=== PATIENT | male | born 1950 | race Caucasian/White ===

== ENCOUNTER 2022-06-19 13:58 | Inpatient (IN) | payer MEDICARE, BC ==
[~2022-06-19] VITALS: Ht 182.9 cm; Wt 74.4 kg
[2022-06-19] VITALS (7 sets, daily range): BP systolic 100–148; BP diastolic 48–119
--- NOTE | 2022-06-19 14:10 | NUR ---
SAIDAA RA88 "From Home Hx Covid 1mo ago now Fever/cough/congestion more altered/slow to response today. BS-172". PLACED ON BED, AWAKE ALERT RESPONDING TO VERBAL STIMULI, CONFUSED, ATTACHED TO MONITOR SATURATING AT 65%RA, RR-24, APLIED O2 8LIT VIA SIMPLE MASK SATURATING AT 91%.
--- NOTE | 2022-06-19 14:15 | NUR ---
INFORMED DR SORENSON ABOUT THE PATIENT SATURATION AND ORDERS HIGH FLOW O2 AND CONTACTED SUPERVISOR MOTOR VEHICLE ASSEMBLY. RESPONDED AND THEY WILL COME
--- NOTE | 2022-06-19 14:20 | NUR ---
CONTRACTOR BUYER. AT BED SIDE ATTACHED PATIENT TO VAPOTHREM HI FLOW WITH SETTING 40LIT. 100%O2 SATURATING AT 97%.
--- NOTE | 2022-06-19 14:25 | NUR ---
RT NOTE POST ABG RESULTS SHOWN TO DR. SORENSON. PLACED PT ON HFNC 40L, 100% PER MD ORDER. SpO2 96%, HR 94. NO SOB NOTED AT THIS TIME. CHARGE NURSE AWARE AND NOTIFIED. WILL CONTINUE TO MONITOR FOR ANY CHANGES.
[2022-06-19 14:40] LABS: ABG BASE EXCESS -2.2 mmol/L; ABG PCO2 27.9 mmHg (35.0-45.0); ABG PO2 60.1 mmHg (75.0-100.0); COHb 0.7 % (0.5-1.5); MetHb 0.2 % (0.0-1.5); O2Hb 89.5 % (94.0-97.0); SITE, ABG Right Radial; VENT MODE, BG 15LPM NRB
--- NOTE | 2022-06-19 15:09 | NUR ---
MOVE SHEET SUBMITTED.
--- NOTE | 2022-06-19 15:15 | NUR ---
BLOOD DRAWN AND TO LAB
[2022-06-19] MEDS ORDERED: CHOL500062 PO (15:20)
[2022-06-19] MEDS ORDERED: DULO20CA PO (15:20)
[2022-06-19] MEDS ORDERED: ROSU40TA PO (15:20)
[2022-06-19] MEDS ORDERED: MULT-1196 PO (15:20)
[2022-06-19] MEDS ORDERED: EZET10TA16 PO (15:20)
[2022-06-19] MEDS ORDERED: OMEP40CA21 PO (15:20)
[2022-06-19] MEDS ORDERED: PREG75CA PO (15:20)
[2022-06-19] MEDS ORDERED: ASPI-1169 PO (15:20)
[2022-06-19] MEDS ORDERED: ZOLP5TAB2 PO (15:20)
[2022-06-19] MEDS ORDERED: BACL10TA PO ×2 (15:20)
[2022-06-19] MEDS ORDERED: DILT240C53 PO (15:20)
[2022-06-19 15:24] LABS: CARBON DIOXIDE 25 mmol/L (21-32); CHLORIDE 106 mmol/L (98-107); CREATININE 1.5 mg/dL (0.6-1.3); GLUCOSE 127 mg/dL (74-106); POTASSIUM 3.7 mmol/L (3.5-5.1); SODIUM SERUM 141 mmol/L (136-145); UREA NITROGEN, BLOOD 46 mg/dL (7-18)
--- NOTE | 2022-06-19 15:30 | NUR ---
PATIENT TAKEN TO CT VIA MARCK
[2022-06-19 15:36] LABS: ALANINE AMINOTRANSFERASE 30 U/L (12-78); ALKALINE PHOSPHATASE 970 U/L (46-116); ASPARTATE AMINOTRANSFERASE 50 U/L (15-37); BILIRUBIN,DIRECT 0.1 mg/dL (0.0-0.2); BILIRUBIN,TOTAL 0.3 mg/dL (0.2-1.0)
[2022-06-19 15:45] LABS: ALBUMIN 1.4 g/dL (3.4-5.0)
--- NOTE | 2022-06-19 15:45 | NUR ---
albumin 1.4, Dr Barry aware
[2022-06-19] MEDS ORDERED: AZITHROMYCIN 500 MG in IV D5W 250 ML IV ONE (16:00)
[2022-06-19] MEDS ORDERED: DEXAMETHASONE SOD PHOSPHATE 10 MG/ML VIAL IV ONE (16:00)
[2022-06-19] MEDS ORDERED: CEFTRIAXONE 1GM BAG (ER ONLY) 50 ML IV ONE (16:00)
[2022-06-19] MEDS ORDERED: IV NS 0.9% 1,000 ML BAG IV ONE ×2 (16:00→17:30)
[2022-06-19] MEDS ORDERED: DEXAMETHASONE SOD PHOSPHATE 10 MG/ML VIAL ONE (16:10)
--- NOTE | 2022-06-19 16:10 | NUR ---
RIGHT CHEST TUBE INSERTION DONE BY DR SORENSON WITH PROPOFOL 100MG DRAINING TO A CLEAR YELLOW COLOR OUTPUT AND SAMPLE SENT TO LAB.
[2022-06-19] MEDS ORDERED: PROPOFOL 20 ML IV ONE (16:52)
[2022-06-19] MEDS ORDERED: PROPOFOL 200 MG/20 ML VIAL IV ONE (17:00)
--- NOTE | 2022-06-19 17:10 | NUR ---
DR BAER SPEAKING WITH DR SORENSON
--- NOTE | 2022-06-19 17:15 | NUR ---
CALLED [facility] PAGED DR HAGER
--- NOTE | 2022-06-19 17:30 | NUR ---
CHARLTON CATH INSERTED FR16 DRAINING TO A YELLOW COLOR URINE OUTPUT AND SAMPLE SENT TO LAB
--- NOTE | 2022-06-19 17:52 | NUR ---
URINE COLLECTED AND SENT TO LAB
[2022-06-19] MEDS ORDERED: ONDANSETRON HCL/PF 4 MG/2 ML VIAL IVP PRN (18:00)
[2022-06-19] MEDS ORDERED: MAGNESIUM HYDROXIDE 30 ML UDC PO PRN (18:00)
[2022-06-19] MEDS ORDERED: Z GUARD REMEDY 4 OZ OINT TP PRN (18:00)
[2022-06-19] MEDS ORDERED: MAG HYDROX/AL HYDROX/SIMETH 30 ML UDC PO PRN (18:00)
[2022-06-19 18:19] LABS: BILIRUBIN,URINE NEGATIVE (NEGATIVE); COLOR,URINE YELLOW (YELLOW); LEUKOCYTE ESTERASE ,URINE SMALL (NEGATIVE); NITRITE, URINE NEGATIVE (NEGATIVE); PROTEIN,URINE 100 mg/dl (NEGATIVE); UGLUCOSE NEGATIVE (NEGATIVE)
--- NOTE | 2022-06-19 18:39 | NUR ---
GOT BED 254 ICU.
[2022-06-19 18:43] LABS: BACTERIA,URINE 3+ /HPF (None Seen); COARSE GRANULAR CASTS,URINE Few /LPF (None Seen); HYALINE CASTS, URINE Few /LPF (None Seen); RBC,URINE 21-50 /HPF (0-2); SQUAMOUS EPITHELIAL CELL,UR 0-2 /HPF (None Seen)
--- NOTE | 2022-06-19 19:25 | NUR ---
REPORT GIVEN TO TIANA [facility] ICU-254 FOR ESME
--- NOTE | 2022-06-19 19:30 | NUR ---
RN NOTES REPORT RECEIVED FROM ER NURSE
--- NOTE | 2022-06-19 19:50 | NUR ---
PUMP SERVICER HELPER NOTES ADMITTED A 71 Y/O MALE PATIENT FROM ER VIA GURNEY, PATIENT AWAKE, A/O X 1, WITH CONFUSION BUT ORIENTED TO NAME. ON HIGH FLOW @ 40L, FIO2-100%, AFEBRILE. WITH DX OF PLEURAL EFFUSION. NOTED WITH LEFT HAND#22, AND RIGHT HAND # 20 PERIPHERAL LINE, FLUSHED WITH NS, PATENT INTACT, NO S/S OF INFILTRATION NOTED. PATIENT WITH RIGHT SIDE CHEST TUBE CONNECTED TO CONTAINER WITH 2000ML OUTPUT. CHARLTON CATHETER PATENT INTACT DRAINING CLEAR YELLOW URINE VIA GRAVITY. ALL SAFETY MEASURE PROVIDED, BED IN LOWEST POSITION, LOCKED. CONTINUE TO MONITOR.
[2022-06-19 20:02] LABS: BASOPHILS # (AUTO) 0.1 K/uL (0.0-0.2); BASOPHILS % (AUTO) 0.5 % (0.0-2.0); EOSINOPHILS % (AUTO) 1.1 % (0.0-6.0); HEMATOCRIT 33 % (39-51); HEMOGLOBIN 10.5 g/dL (13.5-17.5); LYMPHOCYTES # (AUTO) 0.8 K/uL (0.8-4.8); LYMPHOCYTES % (AUTO) 4.3 % (20.0-44.0); MEAN CORPUSCULAR HGB CONC 32 g/dl (31.0-36.0); MEAN CORPUSCULAR VOLUME 87 fL (80-96); MONOCYTES # (AUTO) 0.4 K/uL (0.1-1.30); MONOCYTES % (AUTO) 1.9 % (2.0-12.0); NEUTROPHILS # (AUTO) 17.4 K/uL (1.8-8.9); NEUTROPHILS % (AUTO) 92.2 % (43.0-81.0); PLATELET COUNT (AUTO) 252 K/uL (150-450); RED BLOOD CELL COUNT(AUTO) 3.85 MIL/uL (4.5-6.0); WHITE BLOOD COUNT (AUTO) 18.8 K/uL (4.3-11.0)
--- NOTE | 2022-06-19 20:11 | NUR ---
ICU/RN: RECEIVED PT FROM ER. CHEST TUBE COLLECTION SYSTEM WAS FULL. NEW ATRIUM COLLECTION SYSTEM ATTACHED.
[2022-06-19] MEDS: IV NS 0.9% 1,000 ML IV PRN (20:33)
[2022-06-19 20:45] LABS: BAND % (MANUAL) 7 % (0.0-5.0); LYMPHOCYTES % (MANUAL) 4 % (16-48); MONOCYTES % (MANUAL) 3 % (0-11.0); NEUTROPHILS % (MANUAL) 86 (42-76)
[2022-06-19] MEDS: ENOXAPARIN SODIUM 40 MG/0.4 ML DISP.SYRIN SQ SCH (20:47)
[2022-06-19] MEDS: EZETIMIBE 10 MG TABLET PO SCH (21:54)
[2022-06-19] MEDS: BACLOFEN (10 MG) 10 MG TABLET PO SCH (21:54)
[2022-06-19] MEDS: PREGABALIN 25 MG CAPSULE PO SCH (21:54)
[2022-06-19] MEDS: ATORVASTATIN 40 MG TABLET PO SCH (21:55)
[2022-06-19] MEDS: DULOXETINE HCL 20 MG CAPSULE.DR PO SCH (21:55)
[2022-06-19] MEDS ORDERED: ZOLPIDEM TARTRATE 5 MG TABLET PO PRN (22:00)
[2022-06-19] MEDS: ZOSYN IVPB 3.375 G in IV D5W 50ml IV SCH (23:41)
[2022-06-20] VITALS (51 sets, daily range): BP systolic 75–160; BP diastolic 23–114
[2022-06-20 04:37] LABS: BASOPHILS # (AUTO) 0.1 K/uL (0.0-0.2); BASOPHILS % (AUTO) 0.5 % (0.0-2.0); EOSINOPHILS % (AUTO) 0.1 % (0.0-6.0); HEMATOCRIT 33 % (39-51); HEMOGLOBIN 10.6 g/dL (13.5-17.5); LYMPHOCYTES # (AUTO) 0.7 K/uL (0.8-4.8); LYMPHOCYTES % (AUTO) 3.5 % (20.0-44.0); MEAN CORPUSCULAR HGB CONC 32 g/dl (31.0-36.0); MEAN CORPUSCULAR VOLUME 87 fL (80-96); MONOCYTES # (AUTO) 0.4 K/uL (0.1-1.30); MONOCYTES % (AUTO) 2.2 % (2.0-12.0); NEUTROPHILS # (AUTO) 17.8 K/uL (1.8-8.9); NEUTROPHILS % (AUTO) 93.7 % (43.0-81.0); PLATELET COUNT (AUTO) 251 K/uL (150-450); RED BLOOD CELL COUNT(AUTO) 3.83 MIL/uL (4.5-6.0)
[2022-06-20 04:55] LABS: CALCIUM, SERUM 7.4 mg/dL (8.5-10.1); CARBON DIOXIDE 24 mmol/L (21-32); CHLORIDE 108 mmol/L (98-107); CREATININE 1.5 mg/dL (0.6-1.3); GLUCOSE 144 mg/dL (74-106); MAGNESIUM 2.1 mg/dL (1.8-2.4); PHOSPHORUS 3.1 mg/dL (2.5-4.9); POTASSIUM 3.6 mmol/L (3.5-5.1); SODIUM SERUM 142 mmol/L (136-145); UREA NITROGEN, BLOOD 43 mg/dL (7-18)
[2022-06-20] MEDS: ZOSYN IVPB 3.375 G in IV D5W 50ml IV SCH ×4 (05:37→23:17)
--- NOTE | 2022-06-20 07:10 | NUR ---
RN OPEN NOTE PATIENT AWAKE, CONFUSED BUT MOT AGRESSIVE , ON HIGH FLOW @ 40L, FIO2-100%, AFEBRILE. WITH DX OF PLEURAL EFFUSION. PATIENT HAS IV ACCES ON LEFT HAND#22, AND RIGHT HAND # 20 PERIPHERAL LINE, FLUSHED WITH NS, PATENT INTACT, NO S/S OF INFILTRATION NOTED. IVF OF NS RUNNING WITH 100 ML/HR PATIENT HAS RIGHT SIDE CHEST TUBE CONNECTED TO CONTAINER WITH 95 ML OUTPUT. CHARLTON CATHETER PATENT INTACT DRAINING CLEAR YELLOW URINE VIA GRAVITY. ALL SAFETY MEASURE PROVIDED, BED IN LOWEST POSITION, LOCKED. CONTINUE TO MONITOR.
[2022-06-20] MEDS: PANTOPRAZOLE 40 MG TABLET.DR PO SCH (08:13)
[2022-06-20] MEDS: BACLOFEN (10 MG) 10 MG TABLET PO SCH ×2 (08:14→21:03)
[2022-06-20] MEDS: DILTIAZEM HCL CD 240 MG PO SCH (08:14)
--- NOTE | 2022-06-20 08:17 | NUR ---
WOUND CARE CONSULT: PT PRESENTS WITH SACRAL DEEP TISSUE INJURY IN EVOLUTION, PRESENT ON ADMISSION. PT NOTED TO HAVE CHEST TUBE AND CHARLTON CATH. RECOMMENDATIONS MADE FOR SKIN PROTECTION AND WOUND CARE. DISCUSSED WITH NURSING STAFF. FIRST STEP LOW AIRLOSS MATTRESS IS ON ORDER. MD IN AGREEMENT WITH PLAN OF CARE. Addendum: 06/20/22 at 0818 by NEENA HASSAN WNDNU Amended: Links added.
[2022-06-20] MEDS: ACETYLCYSTEINE 10% SOLN 400 MG/4 ML VIAL NEB SCH ×3 (09:00→23:25)
[2022-06-20] MEDS: DEXAMETHASONE SOD PHOSPHATE 10 MG/ML VIAL IV SCH (09:35)
[2022-06-20] MEDS: IV NS 0.9% 1,000 ML IV PRN (09:58)
[2022-06-20] MEDS: LEVOFLOXACIN 750 MG /D5W 150ML 150 ML IV SCH (10:19)
[2022-06-20] MEDS: ACETAMINOPHEN 325 MG TABLET PO PRN (11:43)
--- NOTE | 2022-06-20 11:45 | NUR ---
SS consult requested for sacral wound from home. Pt. is a 71-year-old male who was admitted to [facility] on 06/19/2022 due to respiratory distress. Upon SS consult, pt. is alert and oriented x1 (self). Pt. appears confused and disoriented. Pt. responded to his name and his daughter Meme ([phone]) name. Pt. did not provide appropriate eye contact. Pt. was unable to answer questions at this time. environmental restoration planner called pt.s daughter Meme ([phone]). Meme ([phone]) stated that the pt. has two caregivers Mina ([phone]) and Javon ([phone]). Meme ([phone]) stated that the pt. had COVID-19 three weeks ago. Meme ([phone]) stated that the pt. had sacral wounds from not being turned from COVID-19. Meme ([phone]) stated she was worried about the care the pt. was receiving at home. Meme ([phone]) stated that she was interested in possible SNF placement for the pt. environmental restoration planner notified CM of family wanting possible SNF placement. CM stated they would follow-up. environmental restoration planner explored pt.s psychiatric history. Meme ([phone]) stated that the pt. is depressed and takes anti-depressant medication. Meme ([phone]) stated that the pt. has a psychiatrist and therapist. Meme ([phone]) stated that the pt. does not have substance use history. Plan: Upon discharge, pt. will return home with caregiver to [address] [place] [id number] or to possible SNF placement.
[2022-06-20] MEDS: ENSURE ENLIVE 237 ML LIQUID (VANILLA) PO SCH ×2 (13:00→17:00)
--- NOTE | 2022-06-20 18:57 | NUR ---
RN CLOSING NOTE PATIENT IS ALERT , CONFUSED , ORIENTED BY NAME , RECEIVING O2 VIA N/C 6L , TOLERATING WELL , O2 SAT 96%, PATIENT HAS IV ACCES ON LEFT HAND#22, AND RIGHT HAND # 20 PERIPHERAL LINE, FLUSHED WITH NS, PATENT INTACT, NO S/S OF INFILTRATION NOTED. IVF OF NS RUNNING WITH 75 ML/HR .PATIENT HAS RIGHT SIDE CHEST TUBE CONNECTED TO CONTAINER WITH 10 ML OUTPUT. CHARLTON CATHETER PATENT INTACT DRAINING CLEAR YELLOW URINE VIA GRAVITY 450 ML OUTPUT. ALL SAFETY MEASURE PROVIDED, ALL MEDICATIONS WERE ADMINISTERED ,BED IN LOWEST POSITION, LOCKED. WILL ENDIRSE AGRICULTURAL TECHNICAL OFFICER TO CONTINUE WITH PLAN OF CARE.
--- NOTE | 2022-06-20 19:20 | NUR ---
USER EXPERIENCE ARCHITECT NOTES RECEIVED PT FOR CONTINUITY OF CARE. PATIENT A/OX1-2 IN NO S/SX OF ACUTE DISTRESS AT THIS TIME; CURRENTLY ON 6L OF O2 VIA NC, WITH 02 SAT 94% AT THIS TIME. WITH R SIDE CHEST TUBE CONNECTED WITH CONTAINER; SECURED AND INTACT NO SIGNS OF LEAKAGE. IV SITE ON L HAND #22 AND R HAND #20; BOTH PATENT, INTACT AND FLUSHING WELL; NO S/S OF INFECTION OR INFILTRATION. RECEIVED RUNNING NS@75MLS/HR. PT ON REGULAR DIET. CHARLTON CATH IN PLACE, SMALL URINE OUTPUT NOTED AT THIS TIME. WITH BILATERAL SOFT RESTRAINTS IN PLACED, MONITORED AND ASSESSED PER PROTOCOL. WILL ENSURE SAFETY MEASURES WITHIN THE SHIFT. PATIENT BED ALARM IS ON. HEAD OF BED ELEVATED. BED IS LOCKED, IN LOWEST POSITION AND SIDE RAILS UP. CALL LIGHT WITHIN REACH OF THE PATIENT. WILL CONTINUE TO MONITOR AND REASSESS FOR ANY CHANGES AND WILL CARRY OUT ANY ONGOING AND ACTIVE MD ORDER.
[2022-06-20] MEDS: ENOXAPARIN SODIUM 40 MG/0.4 ML DISP.SYRIN SQ SCH (20:26)
[2022-06-20] MEDS: EZETIMIBE 10 MG TABLET PO SCH (21:02)
[2022-06-20] MEDS: DULOXETINE HCL 20 MG CAPSULE.DR PO SCH (21:03)
[2022-06-20] MEDS: ATORVASTATIN 40 MG TABLET PO SCH (21:03)
[2022-06-20] MEDS: PREGABALIN 25 MG CAPSULE PO SCH (21:03)
[2022-06-21] VITALS (45 sets, daily range): BP systolic 91–154; BP diastolic 48–100
[2022-06-21] MEDS: IV NS 0.9% 1,000 ML IV PRN ×2 (00:39→14:08)
--- NOTE | 2022-06-21 04:00 | NUR ---
RN NOTES NO NOTED CHANGES IN PATIENT CONDITION AT THIS TIME; PATIENT VITALS STABLE, NO SIGNS OF ACUTE RESPIRATORY DISTRESS. AM PATIENT CARE RENDERED.WILL CONTINUE TO MONITOR AND REASSESS FOR ANY CHANGES THROUGHOUT THE SHIFT.
[2022-06-21 05:01] LABS: BASOPHILS # (AUTO) 0.1 K/uL (0.0-0.2); BASOPHILS % (AUTO) 0.4 % (0.0-2.0); EOSINOPHILS % (AUTO) 0.1 % (0.0-6.0); HEMATOCRIT 33 % (39-51); HEMOGLOBIN 10.4 g/dL (13.5-17.5); LYMPHOCYTES # (AUTO) 0.9 K/uL (0.8-4.8); LYMPHOCYTES % (AUTO) 4.2 % (20.0-44.0); MEAN CORPUSCULAR HGB CONC 32 g/dl (31.0-36.0); MEAN CORPUSCULAR VOLUME 87 fL (80-96); MONOCYTES # (AUTO) 0.9 K/uL (0.1-1.30); MONOCYTES % (AUTO) 4.3 % (2.0-12.0); NEUTROPHILS # (AUTO) 18.6 K/uL (1.8-8.9); PLATELET COUNT (AUTO) 248 K/uL (150-450); RED BLOOD CELL COUNT(AUTO) 3.76 MIL/uL (4.5-6.0); WHITE BLOOD COUNT (AUTO) 20.5 K/uL (4.3-11.0)
[2022-06-21] MEDS: ZOSYN IVPB 3.375 G in IV D5W 50ml IV SCH ×4 (05:13→23:34)
[2022-06-21 05:25] LABS: CALCIUM, SERUM 7.4 mg/dL (8.5-10.1); CARBON DIOXIDE 23 mmol/L (21-32); CHLORIDE 109 mmol/L (98-107); CREATININE 1.5 mg/dL (0.6-1.3); GLUCOSE 113 mg/dL (74-106); POTASSIUM 3.2 mmol/L (3.5-5.1); SODIUM SERUM 142 mmol/L (136-145); UREA NITROGEN, BLOOD 41 mg/dL (7-18)
--- NOTE | 2022-06-21 06:36 | NUR ---
DOPE SPRAYER CLOSING NOTE: PATIENT REMAINS IN ROOM IN NO SIGNS OF RESPIRATORY DISTRESS, PATIENT NOW ON 5L OF O2 VIA NC;TOLERATING WELL SATURATING @ >92% SP02. CHEST TUBE ON R SIDE REMAINED INTACT AND SECURED NO SIGNS OF LEAKAGE STILL CONNECTED TO CONTAINER 56CC OUTPUT FOR THE SHIFT SAFETY MEASURES IMPLEMENTED, BED IN LOWEST POSITION, LOCKED, SIDE RAILS UP, CALL LIGHT WITHIN REACH. ALL NEEDS AND ORDERS ADDRESSED DURING THE SHIFT. IV ACCESS MAINTAINED INTACT, SECURED AND FLUSHING WELL. IV FLUID STILL RUNNING ORDERED. ALL DUE MEDS GIVEN ORDERED & SCHEDULED ; PATIENT TOLERATED WELL. PATIENT KEPT CLEAN AND COMFORTABLE WITHIN THE SHIFT. PATIENT ENDORSED TO INCOMING SHIFT RN WITH STABLE VITAL SIGN AND FOR CONTINUITY OF CARE.
--- NOTE | 2022-06-21 06:45 | NUR ---
TAX INTERN NOTES PT HR WENT UP FROM LOW 100s to 140-150s, AFIB ON MONITOR; DR. CASTELLANOS DOING HIS MORNING ROUNDS AWARE AND SAW PT, MENTIONED HE IS GOING TO PUT ORDERS. RAW HIDE TRIMMER WELL AWARE.
[2022-06-21] MEDS: ACETYLCYSTEINE 10% SOLN 400 MG/4 ML VIAL NEB SCH ×3 (07:19→23:42)
[2022-06-21] MEDS ORDERED: AMIODARONE 150 MG in IV D5W 100 ML IV ONE (07:30)
[2022-06-21] MEDS ORDERED: AMIODARONE 450 MG in IV D5W 250 ML IV PRN (07:30)
[2022-06-21] MEDS ORDERED: POTASSIUM CHLORIDE 20 MEQ TAB.PRT.SR PO ONE (08:00)
--- NOTE | 2022-06-21 08:05 | NUR ---
dr. maria seen pt., no new orders.
[2022-06-21] MEDS: PANTOPRAZOLE 40 MG TABLET.DR PO SCH (08:10)
[2022-06-21] MEDS: AMIODARONE 450 MG in IV D5W 241 ML IV PRN ×2 (08:21→17:26)
--- NOTE | 2022-06-21 08:21 | NUR ---
PT. PLACED INTO HIGH FLOW NASAL CANNULA @ 30 l FLOW / 60% FIO2 DUE TO 80% SPO2 ON 6 LPM NASAL CANNULA. RN NOTIFIED. Addendum: 06/21/22 at 0823 by BIMAL WALTON RT Amended: Links added.
[2022-06-21] MEDS: DILTIAZEM HCL CD 240 MG PO SCH (09:14)
[2022-06-21] MEDS: BACLOFEN (10 MG) 10 MG TABLET PO SCH ×2 (09:15→21:18)
[2022-06-21] MEDS: ENSURE ENLIVE 237 ML LIQUID (VANILLA) PO SCH ×3 (09:15→17:37)
[2022-06-21] MEDS: DEXAMETHASONE SOD PHOSPHATE 10 MG/ML VIAL IV SCH (09:15)
[2022-06-21] MEDS: ACETAMINOPHEN 325 MG TABLET PO PRN (09:53)
--- NOTE | 2022-06-21 11:35 | NUR ---
MADE AWARE OF SCANT-SMALL CHEST TUBE DRAINAGE, NO ORDER MADE.
[2022-06-21] MEDS: IPRATROPIUM NEB FS 0.5 MG/2.5 ML AMPUL.NEB NEB SCH ×2 (12:44→19:40)
--- NOTE | 2022-06-21 19:30 | NUR ---
RN Note Received patient in bed, awake and verbally responsive. poor concentration. Breathing even and unlabored. noted with productive cough. Patient on High flow 30L/60% FIO2. tolerating well with O2 saturation of 97 percent via bedside monitor. Skin is arm and dry to touch. noted with right hand 20g and left hand 22g PIV. currently infusing ns at 75 ml/hr and amiodarone drip at 0.5 mcg. no complaints at this time. indwelling garcia catheter intact, draining by gravity. right sided chest tube. noted with dark red drainage. dressing intact. Soft wrist restraints. Bilateral radial pulses wnl. Bed low, in locked position, call light within reach.
[2022-06-21] MEDS: DULOXETINE HCL 20 MG CAPSULE.DR PO SCH (21:18)
[2022-06-21] MEDS: EZETIMIBE 10 MG TABLET PO SCH (21:18)
[2022-06-21] MEDS: ATORVASTATIN 40 MG TABLET PO SCH (21:18)
[2022-06-21] MEDS: PREGABALIN 25 MG CAPSULE PO SCH (21:19)
[2022-06-21] MEDS: ENOXAPARIN SODIUM 40 MG/0.4 ML DISP.SYRIN SQ SCH (21:30)
--- NOTE | 2022-06-21 23:45 | NUR ---
RT Notes High Flow Nasal cannula settings changed due to SpO2 86%. Flow increased from 30L to 40L and FIO2 increased from 60% to 85%. RN notified.
[2022-06-22] VITALS (37 sets, daily range): BP systolic 107–155; BP diastolic 60–96
[2022-06-22] MEDS: IPRATROPIUM NEB FS 0.5 MG/2.5 ML AMPUL.NEB NEB SCH ×4 (01:42→20:07)
[2022-06-22] MEDS: IV NS 0.9% 1,000 ML IV PRN (02:54)
--- NOTE | 2022-06-22 04:13 | NUR ---
RT Notes FIO2 titrated from 85% to 65% due to SpO2 99%. RN notified.
[2022-06-22] MEDS: ZOSYN IVPB 3.375 G in IV D5W 50ml IV SCH ×4 (04:57→23:34)
[2022-06-22 05:09] LABS: BASOPHILS # (AUTO) 0.1 K/uL (0.0-0.2); BASOPHILS % (AUTO) 0.4 % (0.0-2.0); EOSINOPHILS % (AUTO) 0.1 % (0.0-6.0); HEMATOCRIT 31 % (39-51); HEMOGLOBIN 10.1 g/dL (13.5-17.5); LYMPHOCYTES # (AUTO) 0.9 K/uL (0.8-4.8); LYMPHOCYTES % (AUTO) 3.6 % (20.0-44.0); MEAN CORPUSCULAR HGB CONC 32 g/dl (31.0-36.0); MEAN CORPUSCULAR VOLUME 87 fL (80-96); MONOCYTES % (AUTO) 3.8 % (2.0-12.0); NEUTROPHILS # (AUTO) 24.3 K/uL (1.8-8.9); NEUTROPHILS % (AUTO) 92.1 % (43.0-81.0); PLATELET COUNT (AUTO) 267 K/uL (150-450); RED BLOOD CELL COUNT(AUTO) 3.62 MIL/uL (4.5-6.0); WHITE BLOOD COUNT (AUTO) 26.3 K/uL (4.3-11.0)
--- NOTE | 2022-06-22 05:20 | NUR ---
RT Notes FIO2 increased from 65% to 90% due to SpO2 85%. RN notified.
[2022-06-22 05:31] LABS: CALCIUM, SERUM 7.1 mg/dL (8.5-10.1); CARBON DIOXIDE 21 mmol/L (21-32); CHLORIDE 112 mmol/L (98-107); CREATININE 1.3 mg/dL (0.6-1.3); GLUCOSE 169 mg/dL (74-106); MAGNESIUM 2.2 mg/dL (1.8-2.4); PHOSPHORUS 2.1 mg/dL (2.5-4.9); POTASSIUM 3.9 mmol/L (3.5-5.1); SODIUM SERUM 144 mmol/L (136-145); UREA NITROGEN, BLOOD 42 mg/dL (7-18)
[2022-06-22] MEDS: ACETYLCYSTEINE 10% SOLN 400 MG/4 ML VIAL NEB SCH ×3 (07:28→23:51)
--- NOTE | 2022-06-22 08:16 | NUR ---
NOTIFIED DR. CASTELLANOS REGARDING AFIB WITH HR RANGING/FLUCTUATING 130s-150s. MD WITH NEW ORDER TO STOP AMIODARONE DRIP ONCE THE CURRENT BAG IS COMPLETE AND PER MD HE WILL ENTER DIGOXIN ORDER.CHARGE NURSE AWARE.
[2022-06-22] MEDS: DEXAMETHASONE SOD PHOSPHATE 10 MG/ML VIAL IV SCH (08:56)
[2022-06-22] MEDS: BACLOFEN (10 MG) 10 MG TABLET PO SCH ×2 (08:56→22:05)
[2022-06-22] MEDS: PANTOPRAZOLE 40 MG TABLET.DR PO SCH (08:56)
[2022-06-22] MEDS: ENSURE ENLIVE 237 ML LIQUID (VANILLA) PO SCH ×3 (08:56→17:08)
[2022-06-22] MEDS: DILTIAZEM HCL CD 240 MG PO SCH (08:57)
[2022-06-22] MEDS: LEVOFLOXACIN 750 MG /D5W 150ML 150 ML IV SCH (09:49)
--- NOTE | 2022-06-22 10:03 | NUR ---
fio2 titrate down to 80%. spo2 98% Addendum: 06/22/22 at 1004 by BIMAL WALTON RT Amended: Links added.
--- NOTE | 2022-06-22 10:23 | NUR ---
O2 TITRATION FIO2 60% SPO2 97% Addendum: 06/22/22 at 1023 by BIMAL WALTON RT Amended: Links added.
[2022-06-22] MEDS: DIGOXIN INJ 0.5 MG/2 ML AMPUL IV SCH ×3 (11:14→23:38)
[2022-06-22] MEDS ORDERED: K PHOS NEUTRAL 250 MG TABLET PO ONE (11:30)
--- NOTE | 2022-06-22 19:30 | NUR ---
RN Note Received patient in bed, awake and verbally responsive. Breathing even and unlabored. denies sob. Patient on High flow 40L/60% FIO2. tolerating well with O2 saturation of 98 percent via bedside monitor. on tele monitoring, patient denies chest pain. Skin is arm and dry to touch. noted with right hand 20g and left hand 22g PIV. No IVF infusing. ndwelling garcia catheter intact, draining by gravity. right sided chest tube -20 cm to wall suction. noted with serosanguineous draomage/ dressing intact. Soft wrist restraints. Bilateral radial pulses wnl. Bed low, in locked position, call light within reach.
[2022-06-22] MEDS: ENOXAPARIN SODIUM 40 MG/0.4 ML DISP.SYRIN SQ SCH (20:25)
[2022-06-22] MEDS: DULOXETINE HCL 20 MG CAPSULE.DR PO SCH (22:05)
[2022-06-22] MEDS: PREGABALIN 25 MG CAPSULE PO SCH (22:05)
[2022-06-23] VITALS (29 sets, daily range): BP systolic 105–142; BP diastolic 46–86
[2022-06-23] MEDS: IPRATROPIUM NEB FS 0.5 MG/2.5 ML AMPUL.NEB NEB SCH ×5 (01:27→20:37)
--- NOTE | 2022-06-23 03:46 | NUR ---
RT Notes FIO2 titrate to 50%, Flow 30L. Pt SpO2 98%
[2022-06-23] MEDS: ZOSYN IVPB 3.375 G in IV D5W 50ml IV SCH ×4 (05:00→23:32)
[2022-06-23 05:13] LABS: BASOPHILS % (AUTO) 0.2 % (0.0-2.0); HEMATOCRIT 34 % (39-51); HEMOGLOBIN 10.9 g/dL (13.5-17.5); LYMPHOCYTES # (AUTO) 0.7 K/uL (0.8-4.8); LYMPHOCYTES % (AUTO) 3.6 % (20.0-44.0); MEAN CORPUSCULAR HGB CONC 32 g/dl (31.0-36.0); MEAN CORPUSCULAR VOLUME 87 fL (80-96); MONOCYTES # (AUTO) 0.8 K/uL (0.1-1.30); MONOCYTES % (AUTO) 3.8 % (2.0-12.0); NEUTROPHILS # (AUTO) 18.1 K/uL (1.8-8.9); NEUTROPHILS % (AUTO) 92.4 % (43.0-81.0); PLATELET COUNT (AUTO) 241 K/uL (150-450); RED BLOOD CELL COUNT(AUTO) 3.92 MIL/uL (4.5-6.0); WHITE BLOOD COUNT (AUTO) 19.6 K/uL (4.3-11.0)
[2022-06-23 05:43] LABS: CALCIUM, SERUM 7.7 mg/dL (8.5-10.1); CARBON DIOXIDE 24 mmol/L (21-32); CHLORIDE 109 mmol/L (98-107); CREATININE 1.4 mg/dL (0.6-1.3); GLUCOSE 114 mg/dL (74-106); MAGNESIUM 2.1 mg/dL (1.8-2.4); PHOSPHORUS 3.3 mg/dL (2.5-4.9); POTASSIUM 4.2 mmol/L (3.5-5.1); SODIUM SERUM 142 mmol/L (136-145); UREA NITROGEN, BLOOD 36 mg/dL (7-18)
--- NOTE | 2022-06-23 07:30 | NUR ---
RN NOTES PT FOUND SEMI CARCAMO DISPLAYING NO S/S OF DISTRESS, PT ENDORSES NO PAIN AND IS BREATHING EVEN AND UNLABORED ON 30L HIGH FLOW NC @ 80%. RT PERFORMED ASSESSMENT AND LOWERED HIGH FLOW TO NC 5L. CHEST TUBE INSERTION SITE FORMING GOOD SEAL, NO SOUNDS, TIDALING OBSERVED IN SUCTION CHAMBER. R & L HAND 20G IVS ARE PATIENT AND INTACT. CHARLTON CATHETER RESERVOIR BELOW PATIENT DRAINING BY GRAVITY. RN WILL CONTINUE CARE PLAN AND ANTICIPATE NEEDS. SAFETY MEASURES IN PLACE, BED LOCKED AND IN LOWEST POSITION, SIDE RAILS UPX2, CALL LIGHT WITHIN REACH, BED ALARM ARMED.
[2022-06-23] MEDS: ACETYLCYSTEINE 10% SOLN 400 MG/4 ML VIAL NEB SCH ×3 (07:47→23:12)
[2022-06-23] MEDS: PANTOPRAZOLE 40 MG TABLET.DR PO SCH (08:13)
[2022-06-23] MEDS: DEXAMETHASONE SOD PHOSPHATE 10 MG/ML VIAL IV SCH (08:13)
[2022-06-23] MEDS: BACLOFEN (10 MG) 10 MG TABLET PO SCH ×2 (08:14→21:31)
[2022-06-23] MEDS: DILTIAZEM HCL CD 240 MG PO SCH (08:15)
[2022-06-23] MEDS: ENSURE ENLIVE 237 ML LIQUID (VANILLA) PO SCH ×3 (08:16→17:00)
[2022-06-23] MEDS: ACETAMINOPHEN 325 MG TABLET PO PRN (09:32)
--- NOTE | 2022-06-23 14:15 | NUR ---
MD COMMUNICATION RN INFORMED DR CASTELLANOS OF PT CHANGE IN CONDITION, PT HEART RATE IS NOW 130. GAVE ORDER: DIGOXIN 0.25 MG IV ONE TIME NOW. RN ACKNOWLEDGED AND WILL EXECUTE ORDER.
[2022-06-23] MEDS ORDERED: DIGOXIN INJ 0.5 MG/2 ML AMPUL IV ONE (14:30)
--- NOTE | 2022-06-23 19:30 | NUR ---
RN NOTES PT FOUND SEMI CARCAMO DISPLAYING NO S/S OF DISTRESS, PT ENDORSES NO PAIN AND IS BREATHING EVEN AND UNLABORED ON 5L O2 NC. CHEST TUBE INSERTION SITE FORMING GOOD SEAL, NO SOUNDS, TIDALING OBSERVED IN SUCTION CHAMBER, END OF SHIFT MARKED. R & L HAND 20G IVS ARE PATIENT AND INTACT. CHARLTON CATHETER RESERVOIR BELOW PATIENT DRAINING BY GRAVITY. SBAR AND REPORT GIVEN TO SENIOR TRIAL ATTORNEY RN, ALL QUESTIONS ANSWERED. SAFETY MEASURES IN PLACE, BED LOCKED AND IN LOWEST POSITION, SIDE RAILS UPX2, CALL LIGHT WITHIN REACH, BED ALARM ARMED. PT ENDORSED IN STABLE CONDITION FOR ESME.
--- NOTE | 2022-06-23 19:40 | NUR ---
CAGE MAKER OPENING NOTES RECEIVED PT IN BED, AWAKE, ALERT/ORIENTED X 2-3 AND VERBALLY RESPONSIVE. ON O2 AT 5L/MIN VIA N/C AND PT TOLERATED WELL. O2 SAT 100%. BREATHING EVEN AND UNLABORED. CHEST TUBE IN PLACE WITH DRAINAGE. IV ACCESS ON RT & LT HAND# 20G INTACT AND PATENT. NO S/S OF INFILTRATIONS. CHARLTON CATHETER IN PLACE. DRAINING BY GRAVITY. NOTED YELLOWISH/CLEAR URINE. ALL SAFETY MEASURES IN PLACE. BED IN LOWEST POSITION AND LOCKED, SIDE RAILS UP X2, PLACE CALL LIGHT WITHIN REACH, BED ALARM ON. WILL CONTINUE TO MONITOR
[2022-06-23] MEDS: ENOXAPARIN SODIUM 40 MG/0.4 ML DISP.SYRIN SQ SCH (20:47)
[2022-06-23] MEDS: PREGABALIN 25 MG CAPSULE PO SCH (21:31)
[2022-06-23] MEDS: DULOXETINE HCL 20 MG CAPSULE.DR PO SCH (21:31)
[2022-06-23 22:06] LABS: *MYCOPLASMA PNEUMONIAE IgG <100 U/mL (0-99)
--- NOTE | 2022-06-23 23:24 | NUR ---
RN NOTES: PT C/O UNABLE TO SLEEP. WANTS SLEEPING PILL. NOTIFIED DR. MARTIN, RESTORIL 15 MG TAB PRN. ORDER NOTED AND CARRIED OUT. WILL CONTINUE TO MONITOR
[2022-06-23] MEDS: TEMAZEPAM 15 MG CAPSULE PO PRN (23:32)
[2022-06-24] VITALS (24 sets, daily range): BP systolic 111–149; BP diastolic 43–88
[2022-06-24] MEDS: ACETYLCYSTEINE 10% SOLN 400 MG/4 ML VIAL NEB SCH ×3 (01:26→14:19)
[2022-06-24] MEDS: IPRATROPIUM NEB FS 0.5 MG/2.5 ML AMPUL.NEB NEB SCH ×4 (02:19→19:54)
[2022-06-24] MEDS: ZOSYN IVPB 3.375 G in IV D5W 50ml IV SCH ×4 (05:10→23:19)
--- NOTE | 2022-06-24 06:35 | NUR ---
RETAIL PHARMACY TECHNICIAN CLOSING NOTES PT IN BED, AWAKE, ALERT/ORIENTED X 2-3 AND VERBALLY RESPONSIVE. O2 TITRATE DOWN TO 4L/MIN VIA N/C AND PT TOLERATED WELL. O2 SAT STILL 100%. BREATHING EVEN AND UNLABORED. CHEST TUBE IN PLACE WITH DRAINAGE. 70CC OUT. IV ACCESS ON RT & LT HAND# 20G INTACT AND PATENT. NO S/S OF INFILTRATIONS. CHARLTON CATHETER IN PLACE. DRAINING BY GRAVITY. NOTED YELLOWISH/CLEAR URINE. ALL DUE MEDS GIVEN ORDERED. BUT PT STRONGLY REFUSED TO BE CHANGE. EXPLAINED THE RISKS AND BENEFIT BUT STILL REFUSED. ALL SAFETY MEASURES IN PLACE. BED IN LOWEST POSITION AND LOCKED, SIDE RAILS UP X2, PLACE CALL LIGHT WITHIN REACH, BED ALARM ON. WILL ENDORSE TO MORNING SHIFT NURSE.
--- NOTE | 2022-06-24 07:40 | NUR ---
ICU/RN PT IS RESTING ON 5L N/C ,SAT O2-100%.V/S STABLE,AFEBRILE.NO PAIN REPORTED AT THIS TIME.PT HAS RIGHT CHEST TUBE CONNECTED TO THE SUCTION.IV-HL.GENERALIZED EDEMA PRESENT. F/C IN PLACE DRAINING WITH YELLOW URINE.SACRAL WOUND COVERED WITH DRESSING.REPOSITION FOR COMFORT.
--- NOTE | 2022-06-24 09:00 | NUR ---
ICU/RN DUE MEDS ARE GIVEN ORDERED.PT EATS 50 % FROM HIS MEAL TRAY HELPED WITH ASSISTANCE.
[2022-06-24] MEDS: BACLOFEN (10 MG) 10 MG TABLET PO SCH ×2 (09:35→21:21)
[2022-06-24] MEDS: DEXAMETHASONE SOD PHOSPHATE 10 MG/ML VIAL IV SCH (09:35)
[2022-06-24] MEDS: DILTIAZEM HCL CD 240 MG PO SCH (09:36)
[2022-06-24] MEDS: ENSURE ENLIVE 237 ML LIQUID (VANILLA) PO SCH ×3 (09:36→17:17)
[2022-06-24] MEDS: PANTOPRAZOLE 40 MG TABLET.DR PO SCH (09:45)
--- NOTE | 2022-06-24 10:00 | NUR ---
ICU/RN CT CHEST DONE ORDERED.PT IS BACK TO THE ROOM. FAMILY AT BEDSIDE.
[2022-06-24 12:29] LABS: BASOPHILS # (AUTO) 0.1 K/uL (0.0-0.2); BASOPHILS % (AUTO) 0.3 % (0.0-2.0); EOSINOPHILS % (AUTO) 0.2 % (0.0-6.0); HEMATOCRIT 37 % (39-51); HEMOGLOBIN 11.9 g/dL (13.5-17.5); LYMPHOCYTES # (AUTO) 0.4 K/uL (0.8-4.8); LYMPHOCYTES % (AUTO) 1.7 % (20.0-44.0); MEAN CORPUSCULAR HGB CONC 32 g/dl (31.0-36.0); MEAN CORPUSCULAR VOLUME 86 fL (80-96); MONOCYTES # (AUTO) 0.7 K/uL (0.1-1.30); MONOCYTES % (AUTO) 2.7 % (2.0-12.0); NEUTROPHILS # (AUTO) 23.7 K/uL (1.8-8.9); NEUTROPHILS % (AUTO) 95.1 % (43.0-81.0); PLATELET COUNT (AUTO) 277 K/uL (150-450); RED BLOOD CELL COUNT(AUTO) 4.33 MIL/uL (4.5-6.0); WHITE BLOOD COUNT (AUTO) 24.9 K/uL (4.3-11.0)
[2022-06-24 12:49] LABS: CALCIUM, SERUM 7.8 mg/dL (8.5-10.1); CREATININE 1.3 mg/dL (0.6-1.3); POTASSIUM 3.9 mmol/L (3.5-5.1)
--- NOTE | 2022-06-24 16:00 | NUR ---
ICU/RN PM CARE PROVIDED.WOUND DRESSING DONE ORDERED.
--- NOTE | 2022-06-24 16:40 | NUR ---
ICU/RN PT TRANSFER TO TELE UNIT .V/S STABLE,AFEBRILE.NO PAIN REPORTED AT THIS TIME.REPORT GIVEN TO CARTER/ANGELI
--- NOTE | 2022-06-24 19:01 | NUR ---
RN CLOSING NOTES PT IN BED, AWAKE, ALERT/ORIENTED X 2-3 AND VERBALLY RESPONSIVE. O2 TITRATE DOWN TO 4L/MIN VIA N/C AND PT TOLERATED WELL. BREATHING EVEN AND UNLABORED. CHEST TUBE IN PLACE WITH DRAINAGE. 100CC OUT. IV ACCESS ON RT & LT HAND# 20G INTACT AND PATENT. NO S/S OF INFILTRATIONS. CHARLTON CATHETER IN PLACE. DRAINING BY GRAVITY. NOTED YELLOWISH/CLEAR URINE. ALL SAFETY MEASURES IN PLACE. BED IN LOWEST POSITION AND LOCKED, SIDE RAILS UP X2, PLACE CALL LIGHT WITHIN REACH, BED ALARM ON. WILL ENDORSE TO WIND DEVELOPMENT DIRECTOR NURSE.
--- NOTE | 2022-06-24 19:30 | NUR ---
VITALY RN OPENING NOTE RECEIVED PT IN BED, AWAKE, ALERT/ORIENTED X 2-3, VERBALLY RESPONSIVE. CURRENTLY ON O2 THERAPY VIA NC 4L, TOLERATING WELL. BREATHING EVEN AND UNLABORED. NO S/SX OF ACUTE DISTRESS NOTED AT THIS TIME. CHEST TUBE IN PLACE DRAINING BY GRAVITY. IV ACCESS ON RT & LT HAND# 20G, INTACT AND PATENT. NO S/S OF INFILTRATION. CHARLTON CATHETER IN PLACE DRAINING YELLOW URINE BY GRAVITY. ALL SAFETY MEASURES IN PLACE: BED IN LOWEST POSITION AND LOCKED, SIDE RAILS UP X2, CALL LIGHT WITHIN REACH, BED ALARM ON. WILL CONTINUE TO MONITOR PT.
--- NOTE | 2022-06-24 20:10 | NUR ---
RN NOTE MIGUEL #: [phone] PT'S INSTRUCTED THAT ONLY THEIR DAUGHTER, SHERI CAN GET INFO OR UPDATE REGARDING THE PT.
[2022-06-24] MEDS: ENOXAPARIN SODIUM 40 MG/0.4 ML DISP.SYRIN SQ SCH (20:11)
[2022-06-24 21:06] LABS: *MYCOPLASMA PNEUMONIAE IgM <770 U/mL (0-769)
[2022-06-24] MEDS: PREGABALIN 25 MG CAPSULE PO SCH (21:20)
[2022-06-24] MEDS: DULOXETINE HCL 20 MG CAPSULE.DR PO SCH (21:20)
[2022-06-24] MEDS: TEMAZEPAM 15 MG CAPSULE PO PRN (21:21)
[2022-06-25] VITALS: BP 128/82
[2022-06-25] MEDS: IPRATROPIUM NEB FS 0.5 MG/2.5 ML AMPUL.NEB NEB SCH ×5 (02:01→19:54)
[2022-06-25 04:00] VITALS: BP 140/82
[2022-06-25] MEDS: ZOSYN IVPB 3.375 G in IV D5W 50ml IV SCH ×4 (05:24→23:17)
--- NOTE | 2022-06-25 05:45 | NUR ---
VITALY RN CLOSING NOTE ALL DUE MEDS GIVEN. NEEDS ATTENDED TO. PT REMAINED STABLE THROUGHOUT THE NIGHT. A/O X 2-3 WITH PERIODS OF CONFUSION. TELE MONITOR SHOWS SR WITH HR IN THE 100s. NO SIGNS OF DISTRESS NOTED. ALL SAFETY MEASURES STILL IN PLACE. WILL ENDORSE TO AM SHIFT NURSE FOR ESME.
[2022-06-25] MEDS: ACETYLCYSTEINE 10% SOLN 400 MG/4 ML VIAL NEB SCH ×2 (07:14→14:55)
--- NOTE | 2022-06-25 07:26 | NUR ---
RN OPEN NOTE RECEIVED PATIENT IN BED, AWAKE, ALERT/ORIENTED BY NAME AND VERBALLY RESPONSIVE, CONFUSED, ON O2 AT 4L/MIN VIA N/C TOLERATING WELL. O2 SAT 98%. BREATHING EVEN AND UNLABORED. CHEST TUBE IN PLACE WITH SEROSANGUINEOUS DRAINAGE. IV ACCESS ON RT & LT HAND# 20G INTACT AND PATENT. NO S/S OF INFILTRATIONS. CHARLTON CATHETER IN PLACE. DRAINING BY GRAVITY. NOTED YELLOWISH/CLEAR URINE. ALL SAFETY MEASURES IN PLACE. BED IN LOWEST POSITION AND LOCKED, SIDE RAILS UP X2, PLACE CALL LIGHT WITHIN REACH, BED ALARM ON. WILL CONTINUE TO MONITOR
[2022-06-25 08:00] VITALS: BP 152/86
[2022-06-25] MEDS: BACLOFEN (10 MG) 10 MG TABLET PO SCH ×2 (08:31→21:05)
[2022-06-25] MEDS: DILTIAZEM HCL CD 240 MG PO SCH (08:32)
[2022-06-25] MEDS: DEXAMETHASONE SOD PHOSPHATE 10 MG/ML VIAL IV SCH (08:32)
[2022-06-25] MEDS: PANTOPRAZOLE 40 MG TABLET.DR PO SCH (08:32)
[2022-06-25] MEDS: ENSURE ENLIVE 237 ML LIQUID (VANILLA) PO SCH ×3 (08:33→17:22)
--- NOTE | 2022-06-25 09:34 | NUR ---
dr. david notified pt. with sustainig afib 130's.
[2022-06-25 12:00] VITALS: BP 135/93
[2022-06-25 12:25] LABS: BASOPHILS # (AUTO) 0.1 K/uL (0.0-0.2); BASOPHILS % (AUTO) 0.3 % (0.0-2.0); EOSINOPHILS % (AUTO) 0.4 % (0.0-6.0); HEMATOCRIT 35 % (39-51); HEMOGLOBIN 11.3 g/dL (13.5-17.5); LYMPHOCYTES # (AUTO) 0.5 K/uL (0.8-4.8); LYMPHOCYTES % (AUTO) 1.6 % (20.0-44.0); MEAN CORPUSCULAR HGB CONC 32 g/dl (31.0-36.0); MEAN CORPUSCULAR VOLUME 85 fL (80-96); MONOCYTES # (AUTO) 0.8 K/uL (0.1-1.30); MONOCYTES % (AUTO) 2.7 % (2.0-12.0); NEUTROPHILS # (AUTO) 26.5 K/uL (1.8-8.9); PLATELET COUNT (AUTO) 248 K/uL (150-450); RED BLOOD CELL COUNT(AUTO) 4.15 MIL/uL (4.5-6.0); WHITE BLOOD COUNT (AUTO) 27.9 K/uL (4.3-11.0)
[2022-06-25 12:31] LABS: CALCIUM, SERUM 7.7 mg/dL (8.5-10.1); CARBON DIOXIDE 22 mmol/L (21-32); CHLORIDE 107 mmol/L (98-107); CREATININE 1.3 mg/dL (0.6-1.3); GLUCOSE 153 mg/dL (74-106); POTASSIUM 4.1 mmol/L (3.5-5.1); SODIUM SERUM 138 mmol/L (136-145); UREA NITROGEN, BLOOD 51 mg/dL (7-18)
[2022-06-25] MEDS: DIGOXIN 0.25 MG TABLET PO SCH (12:49)
[2022-06-25 13:37] LABS: BASOPHILS % (MANUAL) 0 % (0.0-2.0); EOSINOPHILS % (MANUAL) 0 % (0-4); LYMPHOCYTES % (MANUAL) 5 % (16-48); MONOCYTES % (MANUAL) 6 % (0-11.0); NEUTROPHILS % (MANUAL) 89 (42-76)
[2022-06-25 16:56] VITALS: BP 130/73
--- NOTE | 2022-06-25 18:50 | NUR ---
RN CLOSING NOTE RECEIVED IS IN BED, AWAKE, ALERT/ORIENTED BY NAME AND VERBALLY RESPONSIVE, BECAME MORE CONFUSED BY THE EVENING , ON O2 AT 4L/MIN VIA N/C TOLERATING WELL. O2 SAT 98%. BREATHING EVEN AND UNLABORED. CHEST TUBE IN PLACE WITH SEROSANGUINEOUS DRAINAGE. IV ACCESS ON RT & LT HAND# 20G INTACT AND PATENT. NO S/S OF INFILTRATIONS. CHARLTON CATHETER IN PLACE. DRAINING BY GRAVITY. NOTED YELLOWISH/CLEAR URINE. ALL SAFETY MEASURES IN PLACE. ALL MEDICATIONS WERE ADMINISTERED , ALL NEEEDS WERE MET . BED IS IN LOWEST POSITION AND LOCKED, SIDE RAILS UP X2, PLACE CALL LIGHT WITHIN REACH.
--- NOTE | 2022-06-25 19:30 | NUR ---
RN OPENING NOTE RECEIVED PT IN BED, AWAKE, ALERT/ORIENTED BY NAME. VERBALLY RESPONSIVE, BUT HAS EPISODES OF CONFUSION. CURRENTLY ON O2 AT 2L/MIN VIA N/C, TOLERATING WELL. O2 SAT 100%. BREATHING IS EVEN AND UNLABORED. CHEST TUBE IN PLACE WITH SEROSANGUINEOUS DRAINAGE NOTED. IV ACCESS ON RT & LT HAND# 20G, BOTH INTACT AND PATENT. NO S/SX OF INFILTRATION. CHARLTON CATHETER IN PLACE DRAINING YELLOW URINE BY GRAVITY. ALL SAFETY MEASURES IN PLACE: BED IN LOWEST POSITION AND LOCKED, SIDE RAILS UP X2, CALL LIGHT WITHIN REACH. WILL CONTINUE TO MONITOR.
[2022-06-25 20:00] VITALS: BP 131/78
[2022-06-25] MEDS: ENOXAPARIN SODIUM 40 MG/0.4 ML DISP.SYRIN SQ SCH (20:52)
[2022-06-25] MEDS: PREGABALIN 25 MG CAPSULE PO SCH (21:05)
[2022-06-25] MEDS: DULOXETINE HCL 20 MG CAPSULE.DR PO SCH (21:05)
[2022-06-26] VITALS: BP 125/75
[2022-06-26] MEDS: IPRATROPIUM NEB FS 0.5 MG/2.5 ML AMPUL.NEB NEB SCH ×4 (00:48→19:48)
[2022-06-26] MEDS: ACETYLCYSTEINE 10% SOLN 400 MG/4 ML VIAL NEB SCH ×3 (00:48→13:29)
[2022-06-26 04:00] VITALS: BP 150/75
[2022-06-26] MEDS: ZOSYN IVPB 3.375 G in IV D5W 50ml IV SCH ×3 (05:19→17:20)
--- NOTE | 2022-06-26 05:50 | NUR ---
RN NOTE PT PULLED OUT HIS IV LINE IN HIS L HAND. R HAND ACCESS STILL IN PLACE.
--- NOTE | 2022-06-26 06:13 | NUR ---
RN CLOSING NOTE PT REMAINED STABLE THROUGHOUT THE NIGHT. ALL DUE MEDS GIVEN, ALL NEEDS ATTENDED TO. WILL ENDORSE TO AM SHIFT NURSE FOR ESME.
--- NOTE | 2022-06-26 07:30 | NUR ---
RN NOTE PT RECEIVED IN BED, RESTING, WITH SOME CONFUSION. PT ON 3L O2 NC WITH NO SIGNS OF LABORED BREATHING AT THIS TIME. CHARLTON CATH IN PLACE, PATENT AND DRAINING. RIGHT HAND 20G IV IN PLACE. RIGHT SIDE CHEST TUBE IN PLACE ON SUCTION, TOTAL OF 1500CC OUTPUT SINCE PLACEMENT. BED LOCKED AND IN LOWEST POSITION, CALL LIGHT WITHIN REACH, 3 SIDE RAILS UP.
--- NOTE | 2022-06-26 07:56 | NUR ---
RN NOTE RN CONTACTED BY [facility], REPORT PT'S DAUGHTER REQUESTED A TRANSFER TO THEIR FACILITY. RADAR ENGINEER AND UNAWARE. DR. HAGER NOTIFIED. WILL NOTIFY BUSINESS DEPARTMENT CHAIR AT 0800. [facility] PHONE NUMBER [phone]
[2022-06-26 08:00] VITALS: BP 127/68
[2022-06-26] MEDS: DILTIAZEM HCL CD 240 MG PO SCH (08:09)
[2022-06-26] MEDS: BACLOFEN (10 MG) 10 MG TABLET PO SCH ×2 (08:09→21:29)
[2022-06-26] MEDS: DEXAMETHASONE SOD PHOSPHATE 10 MG/ML VIAL IV SCH (08:09)
[2022-06-26] MEDS: PANTOPRAZOLE 40 MG TABLET.DR PO SCH (08:09)
[2022-06-26] MEDS: ENSURE ENLIVE 237 ML LIQUID (VANILLA) PO SCH ×3 (08:10→17:20)
[2022-06-26 09:58] LABS: BASOPHILS % (AUTO) 0.1 % (0.0-2.0); EOSINOPHILS % (AUTO) 0.2 % (0.0-6.0); HEMATOCRIT 34 % (39-51); HEMOGLOBIN 10.7 g/dL (13.5-17.5); LYMPHOCYTES # (AUTO) 0.5 K/uL (0.8-4.8); LYMPHOCYTES % (AUTO) 1.9 % (20.0-44.0); MEAN CORPUSCULAR HGB CONC 31 g/dl (31.0-36.0); MEAN CORPUSCULAR VOLUME 87 fL (80-96); MONOCYTES % (AUTO) 3.6 % (2.0-12.0); NEUTROPHILS # (AUTO) 25.9 K/uL (1.8-8.9); NEUTROPHILS % (AUTO) 94.2 % (43.0-81.0); PLATELET COUNT (AUTO) 174 K/uL (150-450); RED BLOOD CELL COUNT(AUTO) 3.95 MIL/uL (4.5-6.0); WHITE BLOOD COUNT (AUTO) 27.4 K/uL (4.3-11.0)
[2022-06-26 10:10] LABS: CARBON DIOXIDE 25 mmol/L (21-32); CHLORIDE 107 mmol/L (98-107); CREATININE 1.2 mg/dL (0.6-1.3); GLUCOSE 131 mg/dL (74-106); SODIUM SERUM 140 mmol/L (136-145); UREA NITROGEN, BLOOD 53 mg/dL (7-18)
[2022-06-26 11:28] LABS: BASOPHILS % (MANUAL) 0 % (0.0-2.0); EOSINOPHILS % (MANUAL) 0 % (0-4); LYMPHOCYTES % (MANUAL) 3 % (16-48); MONOCYTES % (MANUAL) 5 % (0-11.0); NEUTROPHILS % (MANUAL) 92 (42-76)
--- NOTE | 2022-06-26 11:30 | NUR ---
telecom billing analyst note per dr candace norwood to transfer to telemetry
[2022-06-26 12:00] VITALS: BP 131/78
[2022-06-26] MEDS: DIGOXIN 0.25 MG TABLET PO SCH (12:05)
[2022-06-26] MEDS: DEXAMETHASONE SOD PHOSPHATE 4 MG/ML VIAL IV SCH (12:50)
--- NOTE | 2022-06-26 13:54 | NUR ---
RN NOTE CONSENT GIVEN FOR CHEST, ABDOMEN AND PELVIC CT WITH CONTRAST BY ТАТЬЯНА RICE OVER THE PHONE, WITNESSED BY PRIMARY RN QUENTIN SUH. PT WILL BE PLACED BPO AFTER MIDNIGHT ORDERED.
[2022-06-26 16:00] VITALS: BP 132/75
--- NOTE | 2022-06-26 16:30 | NUR ---
PEACH GROWER NOTE NOTED AFIB ON TELE MONITOR HR [address]STELLAN[address] ,EKG ORDERED
--- NOTE | 2022-06-26 16:34 | NUR ---
ORDER ENTRY REPRESENTATIVE NOTE REPORTED TO DR CASTELLANOS EKMillie ,NO NEW ORDER GIVEN
--- NOTE | 2022-06-26 18:13 | NUR ---
ANGELI NOTE NO OUTPUT THROUGH CHEST TUBE THROUGHOUT SHIFT. Addendum: 06/26/22 at 1825 by HUGO LUDWIG RN 80CC OUTPUT AT END OF SHIFT.
--- NOTE | 2022-06-26 19:15 | NUR ---
RN NOTES RECEIVED PT FOR CONTINUITY OF CARE. PATIENT A/OX1-2 IN NO S/SX OF ACUTE DISTRESS AT THIS TIME; CURRENTLY ON 6L OF O2 VIA NC, WITH 02 SA >95% AT THIS TIME. WITH R SIDE CHEST TUBE ON SUCTION; SECURED AND INTACT NO SIGNS OF LEAKAGE. IV SITE ON R HAND #20; PATENT, INTACT AND FLUSHING WELL; NO S/S OF INFECTION OR INFILTRATION. CHARLTON CATH IN PLACE, SMALL URINE OUTPUT NOTED AT THIS TIME. WILL ENSURE SAFETY MEASURES WITHIN THE SHIFT. PATIENT BED ALARM IS ON. HEAD OF BED ELEVATED. BED IS LOCKED, IN LOWEST POSITION AND SIDE RAILS UP. CALL LIGHT WITHIN REACH OF THE PATIENT. WILL CONTINUE TO MONITOR AND REASSESS FOR ANY CHANGES AND WILL CARRY OUT ANY ONGOING AND ACTIVE MD ORDER.
[2022-06-26 20:00] VITALS: BP 135/70
[2022-06-26] MEDS: ENOXAPARIN SODIUM 40 MG/0.4 ML DISP.SYRIN SQ SCH (20:16)
[2022-06-26] MEDS: DULOXETINE HCL 20 MG CAPSULE.DR PO SCH (21:29)
[2022-06-26] MEDS: PREGABALIN 25 MG CAPSULE PO SCH (21:29)
--- NOTE | 2022-06-26 22:40 | NUR ---
RN NOTES RECEIVED CALL FROM [facility] TRANSFER [facility], SPOKE WITH SY, OBTAINED GEN INFO ABOUT PT FOR TRANSFER, AT THIS TIME NO BED AVAILABILITY SHE MENTIONED THEY WILL CALL TO CONFIRM ONCE BED IS AVAILABLE. PHLEBOTOMIST PRN MADE AWARE.
[2022-06-27] VITALS: BP 132/72
[2022-06-27] MEDS: ZOSYN IVPB 3.375 G in IV D5W 50ml IV SCH ×2 (00:25→05:00)
[2022-06-27] MEDS: IPRATROPIUM NEB FS 0.5 MG/2.5 ML AMPUL.NEB NEB SCH ×4 (02:00→19:58)
[2022-06-27] MEDS: ACETYLCYSTEINE 10% SOLN 400 MG/4 ML VIAL NEB SCH ×4 (02:00→23:38)
[2022-06-27 04:00] VITALS: BP 121/84
--- NOTE | 2022-06-27 04:00 | NUR ---
RN NOTES PATIENT REMAINED TO BE IN NO SIGNS OF ACUTE RESPIRATORY DISTRESS ,SAFE ENVIRONMENT MAINTAINED FOR PT. AM PATIENT CARE RENDERED. WILL CONTINUE TO MONITOR AND REASSESS FOR ANY CHANGES THROUGHOUT THE SHIFT.
--- NOTE | 2022-06-27 06:32 | NUR ---
RN CLOSING NOTE: PATIENT REMAINS IN ROOM IN NO SIGNS OF RESPIRATORY DISTRESS, PATIENT NOW ON 3L OF O2 VIA NC;TOLERATING WELL SATURATING @ >95% SP02. CHEST TUBE ON SUCTION REMAINED INTACT AND SECURED NO SIGNS OF LEAKAGE, DRESSING CHANGED DONE, 40CC OUTPUT FOR THE SHIFT. SAFETY MEASURES IMPLEMENTED, BED IN LOWEST POSITION, LOCKED, SIDE RAILS UP, CALL LIGHT WITHIN REACH. ALL NEEDS AND ORDERS ADDRESSED DURING THE SHIFT. IV ACCESS MAINTAINED INTACT, SECURED AND FLUSHING WELL. ALL DUE MEDS GIVEN ORDERED & SCHEDULED ; PATIENT TOLERATED WELL. PATIENT KEPT CLEAN AND COMFORTABLE WITHIN THE SHIFT. PATIENT ENDORSED TO INCOMING SHIFT RN WITH STABLE VITAL SIGN AND FOR CONTINUITY OF CARE.
--- NOTE | 2022-06-27 06:33 | NUR ---
CURRENTLY ON NPO POST MIDNIGHT IN PREPARATION FOR CT ABN PELVIS W CONT FOR EVAL OF LUNG MASS, LIVER MASS AND OSSEOUS LESIONS.
[2022-06-27 07:24] LABS: PROSTATE SPECIFIC ANTIGEN SCR 2.16 ng/mL (0.00-4.00)
[2022-06-27 07:27] LABS: THYROID STIMULATING HORMONE 1.257 uIU/mL (0.358-3.74)
--- NOTE | 2022-06-27 07:30 | NUR ---
RN Receiving Note PT AOx1-2, VSS pt shown no signs of distress. Patient is confused, made him aware of plan of care for today and pending CT. IV patent, no signs of infiltration. Will round throughout shift and administer medications as prescribed. Chest tube in place with no signs of leak. All safety precautions taken, call light and table within reach, bed at lowest position.Will continue to monitor.
[2022-06-27 07:47] LABS: OCCULT BLOOD STOOL NEGATIVE (NEGATIVE)
[2022-06-27 08:00] VITALS: BP 137/92
[2022-06-27] MEDS: DEXAMETHASONE SOD PHOSPHATE 4 MG/ML VIAL IV SCH (09:13)
[2022-06-27] MEDS: BACLOFEN (10 MG) 10 MG TABLET PO SCH ×2 (09:13→22:14)
[2022-06-27] MEDS: PANTOPRAZOLE 40 MG TABLET.DR PO SCH (09:13)
[2022-06-27] MEDS: DILTIAZEM HCL CD 240 MG PO SCH (09:13)
[2022-06-27] MEDS: ENSURE ENLIVE 237 ML LIQUID (VANILLA) PO SCH ×3 (09:14→17:00)
--- NOTE | 2022-06-27 10:00 | NUR ---
RN Chest Tube Changes Pr Dr. Man/Pulmo- clamp Chest tube and order chest X-ray 2 hours after. at bedside made aware of plan of care.
--- NOTE | 2022-06-27 10:00 | NUR ---
FOLLOWUP WITH CT UNABLE TO DO CT WAITING FOR STAFF,WILL TRY IN THE AFTERNOON MD AWARE.
[2022-06-27 12:00] VITALS: BP 123/82
[2022-06-27] MEDS: DIGOXIN 0.25 MG TABLET PO SCH (12:10)
--- NOTE | 2022-06-27 13:00 | NUR ---
STILL WAITING FOR CT FF. UP 3X.
[2022-06-27] MEDS ORDERED: IOHEXOL-300 100 ML VIAL IV ONE (15:06)
--- NOTE | 2022-06-27 15:56 | NUR ---
IV UNABLE TO FLUSH REQUESTED NURSING SUP FOR IV SINCE PT. SHERRI JACKSON,CT AWARE.
[2022-06-27 16:00] VITALS: BP 120/90
--- NOTE | 2022-06-27 16:19 | NUR ---
IV ACCESS OBTAINED PLACED BY INSTRUCTOR TAP DANCING NURSE,WENT FOR CT WITH PRIMARY RN.CXR RESULT RELAYED TO DR. BAER.WILL CONTINUE CHEST TUBE TO CLAMP PER .
--- NOTE | 2022-06-27 19:15 | NUR ---
RN NOTES RECEIVED PT FOR CONTINUITY OF CARE. PATIENT A/OX1-2 IN NO S/SX OF ACUTE DISTRESS AT THIS TIME; CURRENTLY ON 3L OF O2 VIA NC, WITH 02 SA >95% AT THIS TIME. WITH R SIDE CHEST TUBE -CLAMPED; SECURED AND INTACT NO SIGNS OF LEAKAGE. IV SITE ON R UA #18; PATENT, INTACT AND FLUSHING WELL; NO S/S OF INFECTION OR INFILTRATION. [place] CATH IN PLACE, SMALL URINE OUTPUT NOTED AT THIS TIME. ON REGULAR DIET. WILL ENSURE SAFETY MEASURES WITHIN THE SHIFT. PATIENT BED ALARM IS ON. HEAD OF BED ELEVATED. BED IS LOCKED, IN LOWEST POSITION AND SIDE RAILS UP. CALL LIGHT WITHIN REACH OF THE PATIENT. WILL CONTINUE TO MONITOR AND REASSESS FOR ANY CHANGES AND WILL CARRY OUT ANY ONGOING AND ACTIVE MD ORDER.
--- NOTE | 2022-06-27 19:30 | NUR ---
RN Closing Notes Patient AOx2, able to express needs. Patients chest tube is clamped as ordered by provider, New IV 18 g in Right upper arm patent with no signs of infiltration. Patient has been moved to a regular diet. insulator tester at bedside grooming patient. Patient also has family visiting. No signs of distress patient is stable. All safety precautions taken with pt. Remained safe throughout shift. Call light and table within reach, bed at lowest position. Endorsed pt status to PM Nurse.
[2022-06-27 20:00] VITALS: BP 136/83
[2022-06-27] MEDS: ENOXAPARIN SODIUM 40 MG/0.4 ML DISP.SYRIN SQ SCH (20:44)
--- NOTE | 2022-06-27 21:20 | NUR ---
RN NOTES RECEIVED CALL FROM [facility], SPOKE WITH RUDY, OBTAINED UPDATED INFO ABOUT PT FOR TRANSFER, AT THIS TIME NO BED AVAILABILITY HE MENTIONED THEY WILL CALL TO CONFIRM ONCE BED IS AVAILABLE. ELECTRONIC EQUIPMENT REPAIRER MADE AWARE.
[2022-06-27] MEDS: DULOXETINE HCL 20 MG CAPSULE.DR PO SCH (22:12)
[2022-06-27] MEDS: PREGABALIN 25 MG CAPSULE PO SCH (22:17)
[2022-06-28] VITALS: BP 114/90
[2022-06-28] MEDS: IPRATROPIUM NEB FS 0.5 MG/2.5 ML AMPUL.NEB NEB SCH ×4 (02:19→19:35)
[2022-06-28 04:00] VITALS: BP 127/73
--- NOTE | 2022-06-28 06:39 | NUR ---
RN CLOSING NOTE: PATIENT REMAINS IN ROOM IN NO SIGNS OF RESPIRATORY DISTRESS, PATIENT NOW ON 3L OF O2 VIA NC;TOLERATING WELL SATURATING @ >95% SP02. CHEST TUBE ON SUCTION REMAINED INTACT AND SECURED NO SIGNS OF LEAKAGE, REMAINED CLAMPED ORDERED. PT ON REGULAR DIET. SR ON MONITOR. SAFETY MEASURES IMPLEMENTED, BED IN LOWEST POSITION, LOCKED, SIDE RAILS UP, CALL LIGHT WITHIN REACH. ALL NEEDS AND ORDERS ADDRESSED DURING THE SHIFT. IV ACCESS MAINTAINED INTACT, SECURED AND FLUSHING WELL. ALL DUE MEDS GIVEN ORDERED & SCHEDULED ; PATIENT TOLERATED WELL. PATIENT KEPT CLEAN AND COMFORTABLE WITHIN THE SHIFT. PATIENT ENDORSED TO INCOMING SHIFT RN WITH STABLE VITAL SIGN AND FOR CONTINUITY OF CARE.
[2022-06-28 07:06] LABS: IMMUNOGLOBULIN A, SERUM 78 mg/dL (61-437); IMMUNOGLOBULIN G, SERUM 386 mg/dL (603-1613); IMMUNOGLOBULIN M, SERUM 252 mg/dL (15-143)
[2022-06-28 07:06] LABS: AFP, TUMOR MARKER 3.3 ng/mL (0.0-8.4)
[2022-06-28 07:18] LABS: BASOPHILS % (AUTO) 0.1 % (0.0-2.0); EOSINOPHILS % (AUTO) 0.5 % (0.0-6.0); HEMATOCRIT 35 % (39-51); HEMOGLOBIN 11.1 g/dL (13.5-17.5); LYMPHOCYTES # (AUTO) 0.6 K/uL (0.8-4.8); MEAN CORPUSCULAR HGB CONC 31 g/dl (31.0-36.0); MEAN CORPUSCULAR VOLUME 86 fL (80-96); MONOCYTES # (AUTO) 1.7 K/uL (0.1-1.30); MONOCYTES % (AUTO) 5.4 % (2.0-12.0); NEUTROPHILS # (AUTO) 28.2 K/uL (1.8-8.9); PLATELET COUNT (AUTO) 174 K/uL (150-450); RED BLOOD CELL COUNT(AUTO) 4.13 MIL/uL (4.5-6.0)
[2022-06-28] MEDS: ACETYLCYSTEINE 10% SOLN 400 MG/4 ML VIAL NEB SCH ×4 (07:22→23:30)
[2022-06-28 07:28] LABS: WHITE BLOOD COUNT (AUTO) 30.7 K/uL (4.3-11.0)
--- NOTE | 2022-06-28 07:36 | NUR ---
RN OPENING NOTE: PATIENT IN ROOM NO SIGNS OF RESPIRATORY DISTRESS, PATIENT ON 3L OF O2 VIA NC;TOLERATING WELL. CHEST TUBE ON SUCTION REMAINED INTACT AND SECURED NO SIGNS OF LEAKAGE, REMAINED CLAMPED ORDERED. PT ON REGULAR DIET. MONITOR. SAFETY MEASURES IMPLEMENTED, BED IN LOWEST POSITION, LOCKED, SIDE RAILS UP, CALL LIGHT WITHIN REACH. . IV ACCESS INTACT, SECURED AND FLUSHING WELL.
[2022-06-28 08:00] VITALS: BP 114/70
[2022-06-28] MEDS: BACLOFEN (10 MG) 10 MG TABLET PO SCH ×2 (08:30→21:05)
[2022-06-28] MEDS: PANTOPRAZOLE 40 MG TABLET.DR PO SCH (08:30)
[2022-06-28] MEDS: DILTIAZEM HCL CD 240 MG PO SCH (08:30)
--- NOTE | 2022-06-28 08:30 | NUR ---
RN NOTE RECEIVED CRITICAL WBC 30.[address] HAGER NO NEW ORDERS RECEIVED.
[2022-06-28] MEDS: ENSURE ENLIVE 237 ML LIQUID (VANILLA) PO SCH ×3 (08:31→17:00)
[2022-06-28] MEDS: DEXAMETHASONE SOD PHOSPHATE 4 MG/ML VIAL IV SCH (08:31)
[2022-06-28 12:00] VITALS: BP 135/73
[2022-06-28 12:00] LABS: BAND % (MANUAL) 1 % (0.0-5.0); LYMPHOCYTES % (MANUAL) 7 % (16-48); MONOCYTES % (MANUAL) 7 % (0-11.0); NEUTROPHILS % (MANUAL) 85 (42-76)
[2022-06-28] MEDS: DIGOXIN 0.25 MG TABLET PO SCH (12:42)
[2022-06-28 16:00] VITALS: BP 116/67
--- NOTE | 2022-06-28 18:58 | NUR ---
RN CLOSING NOTE: PATIENT REMAINS IN ROOM IN NO SIGNS OF RESPIRATORY DISTRESS, PATIENT NOW ROOM AIR ;TOLERATING WELL . ON MONITOR. SAFETY MEASURES IMPLEMENTED, BED IN LOWEST POSITION, LOCKED, SIDE RAILS UP, CALL LIGHT WITHIN REACH. ALL NEEDS AND ORDERS ADDRESSED DURING THE SHIFT. IV ACCESS MAINTAINED INTACT, SECURED AND FLUSHING WELL. ALL DUE MEDS GIVEN ORDERED & SCHEDULED ; PATIENT TOLERATED WELL. PATIENT KEPT CLEAN AND COMFORTABLE WITHIN THE SHIFT. PATIENT ENDORSED TO INCOMING SHIFT RN.
--- NOTE | 2022-06-28 19:10 | NUR ---
RN NOTES RECEIVED PT FOR CONTINUITY OF CARE. PATIENT A/OX1-2 IN NO S/SX OF ACUTE DISTRESS AT THIS TIME; CURRENTLY ON 3L OF O2 VIA NC, WITH 02 SA >95% AT THIS TIME. IV SITE ON R UA #18; PATENT, INTACT AND FLUSHING WELL; NO S/S OF INFECTION OR INFILTRATION. [place] CATH IN PLACE, SMALL moderate OUTPUT NOTED AT THIS TIME. ON REGULAR DIET. WILL ENSURE SAFETY MEASURES WITHIN THE SHIFT. PATIENT BED ALARM IS ON. HEAD OF BED ELEVATED. BED IS LOCKED, IN LOWEST POSITION AND SIDE RAILS UP. CALL LIGHT WITHIN REACH OF THE PATIENT. WILL CONTINUE TO MONITOR AND REASSESS FOR ANY CHANGES AND WILL CARRY OUT ANY ONGOING AND ACTIVE MD ORDER. Addendum: 06/28/22 at 2211 by MELONY ENAMORADO RN CORRECTION PT IS ALREADY ON ROOM AIR AND BEEN SATING >95%.
[2022-06-28 20:00] VITALS: BP 123/78
--- NOTE | 2022-06-28 20:35 | NUR ---
RN NOTES CONSENT SECURED FOR CT CHEST,ABN AND PELVIS WITH CONTRAST FROM MIGUEL BRADLEY ([facility]) [phone], COUNTER VERIFIED BY ANGELI NIXON.
[2022-06-28] MEDS: ENOXAPARIN SODIUM 40 MG/0.4 ML DISP.SYRIN SQ SCH (20:55)
[2022-06-28] MEDS: PREGABALIN 25 MG CAPSULE PO SCH (21:05)
[2022-06-28] MEDS: DULOXETINE HCL 20 MG CAPSULE.DR PO SCH (21:05)
[2022-06-29] VITALS: BP 119/69
[2022-06-29] MEDS: IPRATROPIUM NEB FS 0.5 MG/2.5 ML AMPUL.NEB NEB SCH ×3 (01:07→07:33)
[2022-06-29 04:00] VITALS: BP 137/71
--- NOTE | 2022-06-29 04:00 | NUR ---
RN NOTES PATIENT REMAINED TO BE IN NO SIGNS OF ACUTE RESPIRATORY DISTRESS ,SAFE ENVIRONMENT MAINTAINED FOR PT. REGULAR REPOSITION DONE Q2H. AM PATIENT CARE RENDERED. WILL CONTINUE TO MONITOR AND REASSESS FOR ANY CHANGES THROUGHOUT THE SHIFT.
--- NOTE | 2022-06-29 06:33 | NUR ---
RN CLOSING NOTE: PATIENT REMAINS IN ROOM IN NO SIGNS OF RESPIRATORY DISTRESS, PATIENT ON ROOM AIR;TOLERATING WELL SATURATING @ >95% SP02. NPO FOR CT CHEST, ABN AND PELVIS WITH CONTRAST TODAY; CONSENT IN PT'S CHART. SAFETY MEASURES IMPLEMENTED, BED IN LOWEST POSITION, LOCKED, SIDE RAILS UP, CALL LIGHT WITHIN REACH. ALL NEEDS AND ORDERS ADDRESSED DURING THE SHIFT. IV ACCESS MAINTAINED INTACT, SECURED AND FLUSHING WELL. ALL DUE MEDS GIVEN ORDERED & SCHEDULED ; PATIENT TOLERATED WELL. PATIENT KEPT CLEAN AND COMFORTABLE WITHIN THE SHIFT. PATIENT ENDORSED TO INCOMING SHIFT RN WITH STABLE VITAL SIGN AND FOR CONTINUITY OF CARE.
[2022-06-29 07:04] LABS: CALCIUM, SERUM 8.3 mg/dL (8.5-10.1); CREATININE 0.9 mg/dL (0.6-1.3); POTASSIUM 4.4 mmol/L (3.5-5.1)
[2022-06-29] MEDS: PANTOPRAZOLE 40 MG TABLET.DR PO SCH (07:30)
--- NOTE | 2022-06-29 07:30 | NUR ---
RN OPENING NOTE PT OBSERVED IN BED SLEEPING. PT IS ON RA TOLERATING WELL NO SIGNS OF DISTRESS OR LABORED BREATHING O2 95%. PT IS A/OX2-3. PT IS NPO AT THIS TIME WAITING ON CT WITH CONTRAST. FC IS IN PLACE DRAINING URINE TO GRAVITY. IV ACCESS R UA. BED IS LOCKED IN LOWEST POSITION X2 BED RAILS UP ALL HOSPITAL SAFETY MEASURES ARE IN PLACE WILL CONTINUE TO MONITOR THIS SHIFT.
[2022-06-29 07:31] LABS: BASOPHILS % (AUTO) 0.1 % (0.0-2.0); EOSINOPHILS % (AUTO) 2.5 % (0.0-6.0); HEMATOCRIT 35 % (39-51); HEMOGLOBIN 10.7 g/dL (13.5-17.5); LYMPHOCYTES # (AUTO) 0.7 K/uL (0.8-4.8); LYMPHOCYTES % (AUTO) 2.8 % (20.0-44.0); MEAN CORPUSCULAR HGB CONC 31 g/dl (31.0-36.0); MEAN CORPUSCULAR VOLUME 87 fL (80-96); MONOCYTES # (AUTO) 1.3 K/uL (0.1-1.30); MONOCYTES % (AUTO) 4.8 % (2.0-12.0); NEUTROPHILS # (AUTO) 24.1 K/uL (1.8-8.9); NEUTROPHILS % (AUTO) 89.8 % (43.0-81.0); PLATELET COUNT (AUTO) 151 K/uL (150-450); RED BLOOD CELL COUNT(AUTO) 3.94 MIL/uL (4.5-6.0); WHITE BLOOD COUNT (AUTO) 26.9 K/uL (4.3-11.0)
[2022-06-29] MEDS: ACETYLCYSTEINE 10% SOLN 400 MG/4 ML VIAL NEB SCH (07:33)
--- NOTE | 2022-06-29 07:33 | NUR ---
RT PATIENT ASSESSED, AWAKE AND ALERT, NO SOB. PATIENT DID NOT WANT BREATHING TX AT THIS TIME. CLEAR DIM BREATH SOUNDS.
[2022-06-29 08:00] VITALS: BP 108/69
[2022-06-29] MEDS: ENSURE ENLIVE 237 ML LIQUID (VANILLA) PO SCH ×3 (08:13→12:55)
[2022-06-29] MEDS: BACLOFEN (10 MG) 10 MG TABLET PO SCH ×2 (08:13→08:41)
[2022-06-29] MEDS: DEXAMETHASONE SOD PHOSPHATE 4 MG/ML VIAL IV SCH (08:30)
[2022-06-29] MEDS: DILTIAZEM HCL CD 240 MG PO SCH (08:41)
[2022-06-29 10:35] LABS: BASOPHILS % (MANUAL) 0 % (0.0-2.0); EOSINOPHILS % (MANUAL) 1 % (0-4); LYMPHOCYTES % (MANUAL) 3 % (16-48); MONOCYTES % (MANUAL) 4 % (0-11.0); NEUTROPHILS % (MANUAL) 93 (42-76)
[2022-06-29 12:00] VITALS: BP 108/69
[2022-06-29] MEDS: DIGOXIN 0.25 MG TABLET PO SCH (12:58)
--- NOTE | 2022-06-29 13:24 | NUR ---
RN NOTE: PT DC TO HOSPICE PT IS DNR/DNI WITH DX OF PLEURAL EFFUSION AND TERMINAL LUNG CANCER. PT'S POA REQUESTED PT TO BE ADMITTED TO HOSPICE CARE. PT WILL BE DC'D AND READMITTED TO SAME ROOM: 103 AND BEGIN HOSPICE CARE X5 DAYS PER ORDER. MEDICATIONS ORDERED: CONTINUE ALL PO MEDS AND BREATHING TX; DC LOVENOX; DC IV HYDRATION; DC ANY IV MEDS; START MORPHINE 1MG IV PUSH Q4H PRN FOR SOB/DYSPNEA AND SEVERE PAIN.
[2022-07-01 10:07] LABS: *SPE A/G RATIO 0.5 (0.7-1.7); *SPE ALPHA-1-GLOBULIN 0.2 g/dL (0.0-0.4); *SPE ALPHA-2-GLOBULIN 1.1 g/dL (0.4-1.0); *SPE BETA GLOBULIN 0.8 g/dL (0.7-1.3); *SPE M-SPIKE Not Observed g/dL (Not Observed)
== END 2022-06-29 13:40 | disposition hospice, home (50) | DRG 177 ==
LOC: ER 14:30 → EDBD 14:30 → ICU 19:22 → TELE-TD 06-24 16:40 → TELE1 06-26 12:13 → MEDSG1 06-29 09:52
PROVIDERS: ADMIT Internal Medicine; ATTEND Internal Medicine
PROC: 0W9930Z Drainage of Right Pleural Cavity with Drainage Device, Percutaneous Approach (ICD-10-PCS; principal; 2022-06-19)
DX: J15.6 Pneumonia due to other Gram-negative bacteria (principal); E43 Unspecified severe protein-calorie malnutrition; J96.01 Acute respiratory failure with hypoxia; G82.50 Quadriplegia, unspecified; N17.0 Acute kidney failure with tubular necrosis; G92.8 Other toxic encephalopathy; J12.82 Pneumonia due to coronavirus disease 2019; J90 Pleural effusion, not elsewhere classified; J93.9 Pneumothorax, unspecified; D68.59 Other primary thrombophilia; I31.3 Pericardial effusion (noninflammatory); C79.51 Secondary malignant neoplasm of bone; C34.90 Malignant neoplasm of unspecified part of unspecified bronchus or lung; J98.11 Atelectasis; N39.0 Urinary tract infection, site not specified; Z66 Do not resuscitate; Z20.822 Contact with and (suspected) exposure to COVID-19; I10 Essential (primary) hypertension; E78.00 Pure hypercholesterolemia, unspecified; Z99.3 Dependence on wheelchair; Z98.1 Arthrodesis status; Z79.899 Other long term (current) drug therapy; Z79.82 Long term (current) use of aspirin; K21.9 Gastro-esophageal reflux disease without esophagitis; Z74.09 Other reduced mobility; D50.9 Iron deficiency anemia, unspecified; D63.8 Anemia in other chronic diseases classified elsewhere; E88.09 Other disorders of plasma-protein metabolism, not elsewhere classified; F32.9 Major depressive disorder, single episode, unspecified; U09.9 Post COVID-19 condition, unspecified; R91.8 Other nonspecific abnormal finding of lung field; R74.8 Abnormal levels of other serum enzymes; Z87.828 Personal history of other (healed) physical injury and trauma; I48.0 Paroxysmal atrial fibrillation; K76.9 Liver disease, unspecified; Z51.5 Encounter for palliative care
CPT/HCPCS: 36415; 36600; 70450-TC; 71045-TC; 71250-TC; 71260-TC; 76770-TC; 80048-TC; 80076-TC; 81001; 82105; 82272-TC; 82378; 82607-TC; 82728-TC; 82784; 82803-TC; 83540-TC; 83605-TC; 83735-TC; 83880; 84100-TC; 84153-TC; 84154-TC; 84155; 84165; 84443-TC; 84484-TC; 85025-TC; 85730-TC; 86301; 86334; 86713; 86738; 87040-TC; 87070-TC; 87086-TC; 88108-TC; 88305-TC; 88341; 88342; 89051-TC; 93307-TC; 94760-TC; 94799-TC; C9803; G0378; G0500; J0282; J0456; J0696; J1100; J1160; J1650; J1956; J2543; J2704; J7030; J7050; J7060; Q9967

== ENCOUNTER 2022-06-29 14:24 | Inpatient (IN) | payer OTHER ==
[~2022-06-29 14:24] MED LIST: ASPI-1169 PO; BACL10TA PO; CHOL500062 PO; DILT240C53 PO; DULO20CA PO; EZET10TA16 PO; MULT-1196 PO; OMEP40CA21 PO; PREG75CA PO; ROSU40TA PO; ZOLP5TAB2 PO
--- NOTE | 2022-06-29 14:24 | NUR ---
RN OPENING NOTE: PT DC TO HOSPICE PT IS DNR/DNI WITH DX OF PLEURAL EFFUSION AND TERMINAL LUNG CANCER. PT'S POA REQUESTED PT TO BE ADMITTED TO HOSPICE CARE. PT WILL BE DC'D AND READMITTED TO SAME ROOM: 103 AND BEGIN HOSPICE CARE X5 DAYS PER ORDER. MEDICATIONS ORDERED: CONTINUE ALL PO MEDS AND BREATHING TX; DC LOVENOX; DC IV HYDRATION; DC ANY IV MEDS; START MORPHINE 1MG IV PUSH Q4H PRN FOR SOB/DYSPNEA AND SEVERE PAIN. WHO IS POA IS CURRENTLY AT BEDSIDE. WILL CONTINUE TO MONITOR THIS SHIFT.
[2022-06-29] MEDS ORDERED: MAG HYDROX/AL HYDROX/SIMETH 30 ML UDC PO PRN (18:30)
[2022-06-29] MEDS ORDERED: ACETAMINOPHEN 325 MG TABLET PO PRN (18:30)
--- NOTE | 2022-06-29 18:45 | NUR ---
RN CLOSING NOTE: COMFORT MEASURES ONLY PT IS IN BED WITH HOB >30 ON RA TOLERATING WELL WITH NO SIGNS OF LABORED BREATHING OR DISTRESS O2 SAT 97%. PT IS ON REGULAR DIET AND TOLERATED ALL MEALS WELL THIS SHIFT. WILL ENDORSE TO [facility] WORKER NURSE FOR [facility].
[2022-06-29] MEDS: IPRATROPIUM NEB FS 0.5 MG/2.5 ML AMPUL.NEB NEB SCH (19:30)
[2022-06-29] MEDS: BACLOFEN (10 MG) 10 MG TABLET PO SCH (21:03)
[2022-06-29] MEDS: PREGABALIN 25 MG CAPSULE PO SCH (21:03)
[2022-06-29] MEDS: DULOXETINE HCL 20 MG CAPSULE.DR PO SCH (21:04)
--- NOTE | 2022-06-29 21:51 | NUR ---
RN NOTE PT DENIES HAVING ANY SOB; PT REFUSED IPRATROPIUM SCHEDULED FOR 1930.
--- NOTE | 2022-06-29 21:55 | NUR ---
RN OPENING NOTE PT RECEIVED IN BED, AWAKE, A&O X3, CALM, COOPERATIVE. PT IS ON RA WITH CURRENT O2SAT OF 91%; PT DENIES HAVING ANY SOB; NO S/S OF RESP DISTRESS, NO COUGH, NON-LABORED AND EQUAL BREATHING; PT APPEARS COMFORTABLE OVERALL. [place] INTACT AND PATENT, NO SIGNS OF LEAKING, DRAINING CLEAR AND YELLOW URINE. PT NOTED TO HAVE NON-PITTING EDEMA ON BILATERAL UPPER EXTREMITIES AND IS NOTED TO BE WEEPING. IV ACCESS ON FLORES 18G, INTACT AND PATENT, FLUSHES EASILY WITH NO RESISTANCE; NO MEDS/FLUIDS RUNNING AT THE MOMENT. NOTED THAT ALL IV MEDS AND FLUIDS HAVE BEEN D/C'D. BED IN LOWEST POSITION, CALL LIGHT WITHIN REACH, SIDE RAILS UP X3. WILL CONTINUE TO MONITOR THROUGHOUT THE NIGHT.
[2022-06-29] MEDS ORDERED: MAGNESIUM HYDROXIDE 30 ML UDC PO PRN (22:00)
[2022-06-29] MEDS ORDERED: ATORVASTATIN 40 MG TABLET PO SCH (22:00)
--- NOTE | 2022-06-29 22:37 | NUR ---
RN NOTE 2000 VITAL SIGNS ARE FOLLOWS: BP: 112/78 HR: 76 O2SAT: 91% RR: 20 TEMP: 97.7 PAIN: 0/10
[2022-06-29] MEDS: ACETYLCYSTEINE 10% SOLN 400 MG/4 ML VIAL NEB SCH (23:30)
[2022-06-30] MEDS: IPRATROPIUM NEB FS 0.5 MG/2.5 ML AMPUL.NEB NEB SCH ×4 (01:30→19:30)
--- NOTE | 2022-06-30 01:35 | NUR ---
RN NOTE PT DENIES FEELING SOB AND REFUSES TO RECEIVE BREATHING TREATMENTS (ATROVENT AND MUCOMYST).
--- NOTE | 2022-06-30 04:26 | NUR ---
RN NOTE 0400 VITAL SIGNS ARE FOLLOWS: BP: 122/76 HR: 78 O2SAT: 92% RR: 18 TEMP: 98.0 PAIN: 0/10
--- NOTE | 2022-06-30 06:27 | NUR ---
RN CLOSING NOTE PT REMAINS IN BED, ASLEEP BUT EASILY AROUSABLE, A&O X3, CALM, COOPERATIVE. CONTINUES TO BE ON RA WITH O2SAT RANGING FROM 91%-92%; PT HAS NO COMPLAINTS OF SOB, NO S/S OF RESP DISTRESS, NON-LABORED AND EQUAL BREATHING. PT NOTED TO HAVE WEAK, NON-PRODUCTIVE COUGH; APPEARS COMFORTABLE OVERALL. PT ALSO HAS +1 PITTING EDEMA ON HANDS AND FEET; PT'S ARMS ALSO NOTED TO BE WEEPING. SACRAL CLEANSED AND NEW MEPILEX APPLIED. ALL DUE MEDS ADMINISTERED DURING THE NIGHT. BED IN LOWEST POSITION, CALL LIGHT WITHIN REACH, SIDE RAILS UP X3. WILL ENDORSE TO DAYSHIFT NURSE TO CONTINUE CARE.
[2022-06-30] MEDS: ACETYLCYSTEINE 10% SOLN 400 MG/4 ML VIAL NEB SCH ×3 (07:35→23:30)
[2022-06-30] MEDS: DILTIAZEM HCL CD 240 MG PO SCH (08:28)
[2022-06-30] MEDS: PANTOPRAZOLE 40 MG TABLET.DR PO SCH (08:29)
[2022-06-30] MEDS: BACLOFEN (10 MG) 10 MG TABLET PO SCH ×2 (08:29→22:07)
[2022-06-30] MEDS: ENSURE ENLIVE 237 ML LIQUID (VANILLA) PO SCH ×3 (08:29→17:43)
[2022-06-30] MEDS: DIGOXIN 0.25 MG TABLET PO SCH (12:52)
--- NOTE | 2022-06-30 18:40 | NUR ---
RN CLOSING NOTE PT REMAINS IN BED, ASLEEP BUT EASILY AROUSABLE, A&O X3, CALM, COOPERATIVE. CONTINUES TO BE ON RA WITH O2SAT RANGING FROM 91%-92%; PT HAS NO COMPLAINTS OF SOB, NO S/S OF RESP DISTRESS, NON-LABORED AND EQUAL BREATHING. PT NOTED TO HAVE WEAK, NON-PRODUCTIVE COUGH; APPEARS COMFORTABLE OVERALL. PT ALSO HAS +1 PITTING EDEMA ON HANDS AND FEET; PT'S ARMS ALSO NOTED TO BE WEEPING. SACRAL CLEANSED AND NEW MEPILEX APPLIED. ALL DUE MEDS ADMINISTERED DURING THE DAY. BED IN LOWEST POSITION, CALL LIGHT WITHIN REACH, SIDE RAILS UP X3. WILL ENDORSE TO NIGHTSHIFT NURSE TO CONTINUE CARE.
[2022-06-30] MEDS: PREGABALIN 25 MG CAPSULE PO SCH (22:07)
[2022-06-30] MEDS: DULOXETINE HCL 20 MG CAPSULE.DR PO SCH (22:07)
--- NOTE | 2022-06-30 22:09 | NUR ---
RN NOTE PER DAYSHIFT RN, PT REFUSED BREATHING TREATMENTS.
--- NOTE | 2022-06-30 22:15 | NUR ---
RN OPENING NOTE PT RECEIVED IN BED, AWAKE, A&O X3, CALM, COOPERATIVE. PT ON RA WITH CURRENT O2SAT OF 93%; PT DENIES HAVING ANY SOB; NO S/S OF RESP DISTRESS, NON-LABORED AND EQUAL BREATHING; PT HAS WEAK, NON-PRODUCTIVE COUGH. [place] INTACT AND PATENT, NO SIGNS OF LEAKING, DRAINING CLEAR AND ARANZA URINE. PT NOTED TO HAVE +1 PITTING EDEMA ON BILATERAL UPPER EXTREMITIES AND IS WEEPING. IV ACCESS ON FLORES 18G, INTACT AND PATENT, FLUSHES EASILY WITH NO RESISTANCE; NO MEDS/FLUIDS RUNNING THROUGH IT. BED IN LOWEST POSITION, CALL LIGHT WITHIN REACH, SIDE RAILS UP X3. WILL CONTINUE TO MONITOR THROUGHOUT THE NIGHT.
--- NOTE | 2022-06-30 23:50 | NUR ---
RN NOTE PT DENIES FEELING SOB AND SAYS HE DOES NOT WANT TO RECEIVE HIS BREATHING TREATMENTS MUCOMYST AND ATROVENT.
[2022-07-01] MEDS: IPRATROPIUM NEB FS 0.5 MG/2.5 ML AMPUL.NEB NEB SCH (01:30)
--- NOTE | 2022-07-01 06:49 | NUR ---
RN CLOSING NOTE PT REMAINS IN BED, A&O X3, NOTED TO HAVE PERIODS OF CONFUSION, BUT IS CALM AND COOPERATIVE. CONTINUES TO BE ON RA WITH O2SAT AT 93% THROUGHOUT THE WHOLE NIGHT; PT HAD NO COMPLAINTS OF SOB, NO REPORT OF PAIN; NO S/S OF RESP DISTRESS, NON-LABORED AND EQUAL BREATHING. PT NOTED TO HAVE WEAK, NON-PRODUCTIVE COUGH; APPEARS COMFORTABLE OVERALL. ALL DUE MEDS ADMINISTERED DURING THE NIGHT. BED IN LOWEST POSITION, CALL LIGHT WITHIN REACH, SIDE RAILS UP X3. WILL ENDORSE TO DAYSHIFT NURSE TO CONTINUE CARE.
[2022-07-01] MEDS: DILTIAZEM HCL CD 240 MG PO SCH (08:55)
[2022-07-01] MEDS: PANTOPRAZOLE 40 MG TABLET.DR PO SCH (09:00)
[2022-07-01] MEDS: BACLOFEN (10 MG) 10 MG TABLET PO SCH ×2 (09:00→21:06)
[2022-07-01] MEDS: ENSURE ENLIVE 237 ML LIQUID (VANILLA) PO SCH ×3 (09:11→17:00)
[2022-07-01] MEDS: DIGOXIN 0.25 MG TABLET PO SCH (12:24)
[2022-07-01] MEDS: MORPHINE SULFATE INJ 2 MG/ML DISP.SYRIN IV PRN (14:24)
--- NOTE | 2022-07-01 19:43 | NUR ---
RN NOTE PT RESTING IN BED, ALERT AND VERBALLY RESPONSIVE. IN ROOM AIR, NOT IN RESPI DISTRESS.CONT IN COMFORT AND HOSPICE CARE. PAIN MGT WITH GOOD EFFECT. ALL MEDS GIVEN, AM/PM CARE RENDERED. SAFETY MAINTAINED.
[2022-07-01 20:00] VITALS: BP 120/61
[2022-07-01] MEDS: DULOXETINE HCL 20 MG CAPSULE.DR PO SCH (21:07)
[2022-07-01] MEDS: PREGABALIN 25 MG CAPSULE PO SCH (21:11)
--- NOTE | 2022-07-02 06:46 | NUR ---
RN NOTE PT RESTING IN BED, ASLEEP VERBALLY RESPONSIVE , CONT AT ROOM AIR, WITH OPTIMAL O2 SAT LEVEL, TOLERATING WELL, NO SOB/ACUTE DISTRESS NOTED, OTHERWISE NO SIGNIFICANT CHANGE IN CONDITION DURING THE NIGHT, CONT HOSPICE AND COMFORT MEASURES ONLY, PATIENT DENIES PAIN, MULTIPLE TIMES ASSESSMENT PATIENT FOR COMFORT AND PAIN AND HE DENIES PAIN/DISCOMFORT, VITAL SIGNS STABLE, ALL SAFETY MEASURES MAINTAINED, CALL LIGHT W/I REACH, S/R OF BED UP X3, WILL ENDORSE CONTINUITY OF CARE TO ONCOMING NURSE
[2022-07-02] MEDS: PANTOPRAZOLE 40 MG TABLET.DR PO SCH (07:30)
--- NOTE | 2022-07-02 07:49 | NUR ---
RN NOTE PT RECEIVED IN BED, ALERT AND VERBALLY RESPONSIVE. IN ROOM AIR, NOT IN RESPI DISTRESS.CONT IN COMFORT AND HOSPICE CARE. SAFETY MAINTAINED. WILL CONT TO MONITOR.
[2022-07-02 09:00] VITALS: BP 136/70
[2022-07-02] MEDS: DILTIAZEM HCL CD 240 MG PO SCH (09:00)
[2022-07-02] MEDS: BACLOFEN (10 MG) 10 MG TABLET PO SCH ×2 (09:00→21:19)
[2022-07-02] MEDS: ENSURE ENLIVE 237 ML LIQUID (VANILLA) PO SCH ×3 (09:00→17:00)
[2022-07-02] MEDS: DIGOXIN 0.25 MG TABLET PO SCH (13:00)
[2022-07-02] MEDS: MORPHINE SULFATE INJ 2 MG/ML DISP.SYRIN IV PRN (18:43)
--- NOTE | 2022-07-02 19:40 | NUR ---
RN OPENING NOTE RECEIVED PT RESTING IN BED, A/O X3 WITH PERIODS OF CONFUSION, ON RA WITH CURRENT O2SAT OF 95%, PT DENIES HAVING ANY SOB, NO S/S OF RESP DISTRESS, NON-LABORED AND EQUAL BREATHING; IV ACCESS ON FLORES 18G, INTACT AND PATENT, FLUSHES EASILY WITH NO RESISTANCE; NO MEDS/FLUIDS RUNNING THROUGH IT. BED IN LOWEST AND LOCKED POSITION, CALL LIGHT WITHIN REACH, SIDE RAILS UP X3. WILL CONTINUE TO MONITOR THROUGHOUT THE SHIFT.
[2022-07-02] MEDS: DULOXETINE HCL 20 MG CAPSULE.DR PO SCH (21:19)
[2022-07-02] MEDS: PREGABALIN 25 MG CAPSULE PO SCH (21:19)
--- NOTE | 2022-07-03 | NUR ---
RN NOTE IV ACCESS ON FLORES DISLODGED, ATTEMPTED TO START NEW IV ACCESS ON R WRIST #22G; INTACT, PATENT AND FLUSHING WELL. PT TOLERATED WELL. WILL CONT TO MONITOR THROUGHOUT THE SHIFT.
--- NOTE | 2022-07-03 04:30 | NUR ---
RN NOTE NOTED PT BP LOW AT 77/20, HR AT 101. CN MADE AWARE. WILL CONT TO PROVIDE COMFORT MEASURES THROUGHOUT THE SHIFT.
--- NOTE | 2022-07-03 07:07 | NUR ---
RN NOTE NOTED PATIENT LYING IN BED, NOT BREATHING ANYMORE. NO PULSE PALPATED, VERIFIED BY CN. PRONOUNCED PATIENT AT 07/03/22 0707. CALLED DAUGHTER SHERI TO GIVE REPORT ABOUT HER DAD, ASSURED HER THAT COMFORT MEASURES WERE PROVIDED THROUGHOUT THE SHIFT. CN NOTIFIED ALL HOSPITAL PERSONNEL ABOUT THIS PATIENT . WILL ENDORSE PATIENT TO AM SHIFT FOR POST MORTEM CARE.
--- NOTE | 2022-07-03 07:07 | NUR ---
0707 SUMMONED TO PATIENT'S ROOM BY PRIMARY NURSE, PATIENT NOTED NON RESPONSIVE TO ANY STIMULI, SKIN PALE AND COOL TO TOUCH. NO SIGNS OF RESPIRATION (RISE AND FALL OF CHEST) NOTED. NO PULSES PALPABLE WHEN CHECKED, AND PUPILS FIXED AND DILATED. PATIENT PRONOUNCED AT THIS TIME.
--- NOTE | 2022-07-03 07:10 | NUR ---
7264 SHED HAND NADIA MADE AWARE OF PATIENT'S .
--- NOTE | 2022-07-03 07:15 | NUR ---
0715 CALLED [facility] AND SPOKE WITH GISELL, MADE HER AWARE THAT PATIENT HAS . PER GISELL THEY WILL NOTIFY
--- NOTE | 2022-07-03 07:21 | NUR ---
0721 RAUL OLMSTEAD MADE AWARE OF PATIENT'S .
--- NOTE | 2022-07-03 07:30 | NUR ---
0730 GAGE FROM ADMITTING NOTIFIED OF PATIENT'S .
--- NOTE | 2022-07-03 07:30 | NUR ---
RN NOTE POSTMORTEM DONE,WAITING FOR FAMILY
--- NOTE | 2022-07-03 07:45 | NUR ---
Marin CALLED # [phone] and case # [id number] waiting for family
--- NOTE | 2022-07-03 10:00 | NUR ---
KNOT CUTTER NOTE SECURITY TOOK PATIENT BODY TO [facility],FAMILY WITH THEM.
== END 2022-07-03 07:07 | DRG 177 ==
LOC: HOSPICE1 14:24
PROVIDERS: ADMIT Nurse Practitioner Acute Care; ATTEND Nurse Practitioner Acute Care
DX: J15.6 Pneumonia due to other Gram-negative bacteria (principal); E43 Unspecified severe protein-calorie malnutrition; G82.50 Quadriplegia, unspecified; J96.01 Acute respiratory failure with hypoxia; N17.0 Acute kidney failure with tubular necrosis; G93.41 Metabolic encephalopathy; I31.3 Pericardial effusion (noninflammatory); D68.59 Other primary thrombophilia; J90 Pleural effusion, not elsewhere classified; C79.51 Secondary malignant neoplasm of bone; C34.90 Malignant neoplasm of unspecified part of unspecified bronchus or lung; I49.9 Cardiac arrhythmia, unspecified; Z66 Do not resuscitate; Z51.5 Encounter for palliative care; Z87.828 Personal history of other (healed) physical injury and trauma; Z74.09 Other reduced mobility; E88.09 Other disorders of plasma-protein metabolism, not elsewhere classified; K21.9 Gastro-esophageal reflux disease without esophagitis; F32.9 Major depressive disorder, single episode, unspecified; U09.9 Post COVID-19 condition, unspecified
CPT/HCPCS: G0378; J2270